=== PATIENT | male | born 1945 | race Caucasian/White ===

== ENCOUNTER 2019-11-20 05:28 | Inpatient (IN) ==
--- NOTE | 2019-11-15 08:52 | Anesthesiology Consultation ---
Date of Service November 15, 2019 Assessment & Plan (1) Encounter for pre-operative examination: PCP Clearance 10/02/19 = "Reviewed the documents from orthopedic surgeon and reviewed x-rays. Labs reviewed that mitra normal CBC and Cr. No cardiac symptoms. Pt is cleared for the surgery." COVID Status: As of 11/14 nurse assessment, patient denies travel to endemic area, known exposure/sick contacts, or symptoms of COVID19. Preoperative COVID19 testing completed on 11/14 at [facility] [place], results pending. Chart Review Chart Review: Acceptable Risk for Surgery and Patient NOT seen in Pre Admission Testing History Surgery Operation Date: 11/20/19 09:30 Proposed Procedures p Right Anterior Total Hip Arthroplasty - Sadi Butler DO Height/Weight Height: 5 ft 11.5 in Weight: 95.254 kg Allergies Allergy/AdvReac Type Severity Reaction Status Date / Time No Known Allergies Allergy Verified 11/15/19 07:33 Medications Home Medications Medication Instructions Recorded Confirmed Last Taken ascorbic acid (vitamin C) [Vitamin 1 g PO QAM 09/14/19 11/15/19 Unknown C] aspirin [Aspir-81] 81 mg PO QPM 09/14/19 11/15/19 Unknown atorvastatin 10 mg PO QPM 09/14/19 11/15/19 Unknown calcium carbonate-vitamin D3 2 tab PO BID 09/14/19 11/15/19 Unknown [Calcium 500 + D] coenzyme Q10 [CoQ-10] 100 mg PO QPM 09/14/19 11/15/19 Unknown cyanocobalamin (vitamin B-12) 1,000 mcg PO QAM 09/14/19 11/15/19 Unknown [Vitamin B-12] garlic 1,000 mg PO QAM 09/14/19 11/15/19 Unknown glipizide 5 mg PO QAM 09/14/19 11/15/19 Unknown ibuprofen [Motrin IB] 400 mg PO Q6H PRN 09/14/19 11/15/19 Unknown lisinopril 20 mg PO BID 09/14/19 11/15/19 Unknown metformin 2,000 mg PO QPM 09/14/19 11/15/19 Unknown multivitamin 1 tab PO BID 09/14/19 11/15/19 Unknown naproxen 375 mg PO BID 09/14/19 11/15/19 Unknown potassium gluconate 595 mg PO BID 11/15/19 11/15/19 Unknown Past Medical History Medical History Arthritis Cancer HX COLON CANCER 2007-CHEMO/RADIATION-RECTAL BIOPSY/NO SURGERY NEEDED Diabetes mellitus, type 2 Hyperlipidemia Hypertension Neuropathy RIGHT LEG Skin cancer BASAL CELL/SQUAMOUS CELL Past Family History Family History Brother Family history of diabetes mellitus Mother Family history of diabetes mellitus Past Surgical History Surgical History H/O hand surgery DEBRIDEMENT LEFT INDEX FINGER History of colonoscopy History of herniorrhaphy History of hydrocelectomy Social History Smoking Status: Never smoker Do You Dip or Chew Tobacco: No Hx Alcohol Use: Yes Alcohol type: beer alcohol intake frequency: holidays/special occasions only Hx Substance Use: No Testing Laboratory Results 09/20/19 WBC: 6.24 H/H: 12.5/37.8 PLATELETS: 215 SODIUM: 137 POTASSIUM: 4.4 CHLORIDE: 105 CO2: 27 BUN: 28 CREATININE: 1.02 GLUCOSE: 142 PT: 11.4 PTT: 28.2 INR: 1.1 A1C (10/09/19): 7.6% Electrocardiogram Date: 09/20/19 Findings: + SB @ (54bpm) 1st degree AV block. Left axis deviation. NSIVCD. NSTWA. Chest X-Ray Date: 09/20/19 Findings: + NAD Other Testing Echocardiogram Date: 06/06/19 EF: 55-60% LV is normal in size. Mild concentric LVH. LV systolic function is normal. Left atrium is moderately dilated. No hemodynamically significant valvular aortic stenosis. Trace to mild MR. Trace TR. Trace pulmonic valvular regurgitation. No pericardial effusion. Stress Test Date: 08/10/19 Type: nuclear Resting EF: 58% Electrocardiographically negative for regadenoson-induced ischemic changes, arrhythmias, or conduction disturbances. Normal myocardial perfusion imaging with no evidence of myocardial ischemia or scar. No LV regional wall motion abnormalities.
--- NOTE | 2019-11-18 08:33 | History & Physical Report ---
Date of Service November 20, 2019 Assessment & Plan (1) Degenerative joint disease of right hip: I have indicated the patient for right anterior total hip replacement. The risks, benefits and complications of surgery were explained to the patient which include but not limited to infection, acute blood loss, DVT/PE, injury to nerves, vessels, bone, soft tissue, arthrofibrosis, chronic pain, failure of the prosthesis, hip dislocation, leg length discrepancy, need for additional surgery, cardiac and pulmonary events and . The patient wished to proceed with surgery and informed consent was obtained at this time. We will plan for 81mg ASA BID post-operatively for DVT prophylaxis. Upon discharge the patient will be discharged home with home health services. Appropriate clearances by PCP were obtained. History of Present Illness Chief Complaint: Right hip pain/DJD/AVN Primary Care Provider: Kathy Rios The patient is a 74 year old male who presents with complaints of severe right hip pain and DJD/AVN. The patient has failed outpatient conservative treatments to this point which included NSAIDs, home exercise/walking program. The patient's pain and limited function have progressed to the point where they severely hinder their activities of daily living and they no longer tolerate exercise programs. They are requesting to proceed with total hip replacement surgery. Previously patient's surgery had to be delayed secondary to elevate HbA1C, most recent lab draw 6.8. Allergies Allergy/AdvReac Type Severity Reaction Status Date / Time No Known Allergies Allergy Verified 11/20/19 05:54 Home Medications Home Medications Medication Instructions Recorded Confirmed Type ascorbic acid (vitamin C) [Vitamin 1 g PO QAM 09/14/19 11/20/19 History C] aspirin [Aspir-81] 81 mg PO QPM 09/14/19 11/20/19 History atorvastatin 10 mg PO QPM 09/14/19 11/20/19 History calcium carbonate-vitamin D3 2 tab PO BID 09/14/19 11/20/19 History [Calcium 500 + D] coenzyme Q10 [CoQ-10] 100 mg PO QPM 09/14/19 11/20/19 History cyanocobalamin (vitamin B-12) 1,000 mcg PO QAM 09/14/19 11/20/19 History [Vitamin B-12] garlic 1,000 mg PO QAM 09/14/19 11/20/19 History glipizide 5 mg PO QAM 09/14/19 11/20/19 History ibuprofen [Motrin IB] 400 mg PO Q6H PRN 09/14/19 11/20/19 History lisinopril 20 mg PO BID 09/14/19 11/20/19 History metformin 2,000 mg PO QPM 09/14/19 11/20/19 History multivitamin 1 tab PO BID 09/14/19 11/20/19 History naproxen 375 mg PO BID 09/14/19 11/20/19 History potassium gluconate 595 mg PO BID 11/15/19 11/20/19 History loperamide [Imodium A-D] 2 mg PO QID PRN 11/20/19 11/20/19 History Past Med/Surg History Medical History Arthritis Cancer HX COLON CANCER 2006-CHEMO/RADIATION-RECTAL BIOPSY/NO SURGERY NEEDED Diabetes mellitus, type 2 Hyperlipidemia Hypertension Neuropathy RIGHT LEG Skin cancer BASAL CELL/SQUAMOUS CELL Surgical History H/O hand surgery DEBRIDEMENT LEFT INDEX FINGER History of colonoscopy History of herniorrhaphy History of hydrocelectomy Family History Brother Family history of diabetes mellitus Mother Family history of diabetes mellitus Social History Smoking Status: Never smoker Second Hand Exposure: Yes ( A CHILD); Do You Dip or Chew Tobacco: No; Tobacco Cessation Education Requested by Patient: No Hx Alcohol Use: Yes Alcohol type: beer Hx Substance Use: No Preferred Language: Maltese Communication Ability: Effective Literacy Teacher Required: No Beliefs That Will Affect Care: None Current Living Situation: Spouse Feels Safe at Home: Yes Safety Concerns: Feels Safe At This Time Review of Systems Review of Systems: All systems reviewed & are unremarkable except as noted in HPI & below Constitutional: as per Subjective / HPI Physical Exam Physical Exam: RLE NVSI +EHL/FHL/TA/GS SILT grossly, +2 DP pulse, compartments soft NT, limited painful ROM of the hip, antalgic gait. Constitutional: WD/WN, vitals as above Eyes: PERRL, conjunctivae normal, anicteric sclerae ENMT: external ear and nose normal, oropharynx normal Neck: trachea midline, no thyromegaly Respiratory: normal respiratory effort, lungs clear to auscultation Cardiovascular: RRR, no murmur, no edema Gastrointestinal (Abdomen): normal bowel sounds, soft, nontender, no hepatosplenomegaly Musculoskeletal: no cyanosis or clubbing, extremities motor strength 5/5 Skin: no rashes, warm and dry Neurologic: patellar DTR's 2+ bilat, sensation intact Psychiatric: A+Ox3, euthymic affect Lymphatic: no cervical or axillary lymphadenopathy Results & Data Results & Data ([place]) Diagnostic Findings Multiple views of the hip demonstrates severe DJD with complete loss of the joint space. AVN involving femoral head, +osteophytes, +sclerosis, +subchondral cysts.
[2019-11-20] MEDS ORDERED: CeleBREX 200 MG CAP PO SCH (06:00)
[2019-11-20] MEDS ORDERED: METOCLOPRAMIDE HCL 10 MG TABLET PO SCH (06:00)
[2019-11-20] MEDS ORDERED: TRANEXAMIC ACID 1,000 MG **IV Pre-op IV SCH (06:00)
[2019-11-20] MEDS ORDERED: FAMOTIDINE 20 MG TAB PO SCH (06:00)
[2019-11-20] MEDS ORDERED: dexAMETHasone 4 MG TAB PO SCH (06:00)
[2019-11-20] MEDS ORDERED: LR 500ML BOLUS, THEN 15ML/HR IV SCH (06:00)
[2019-11-20] MEDS ORDERED: TRANEXAMIC ACID 1,000 MG **IV Intra-op IV SCH (06:00)
[2019-11-20] MEDS ORDERED: ROPIVACAINE 0.5% HCL/PF 150 MG, BUPIVACAINE 0.5% MPF 30 ML, EPINEPHrine 30MG/30ML (OR U... INSTIL SCH (06:00)
[2019-11-20] MEDS ORDERED: CEFAZOLIN 2000MG 2,000 MG/15 ML SYR IV SCH (06:00)
[2019-11-20] MEDS ORDERED: ACETAMINOPHEN 500 MG TAB PO SCH (06:00)
[2019-11-20] MEDS ORDERED: GABAPENTIN 300 MG CAP PO SCH (06:00)
[2019-11-20] MEDS ORDERED: BUPIVACAINE 0.5 % 5 MG/1 ML PF 10ML VIAL ONE (06:36)
[2019-11-20] MEDS ORDERED: MIDAZOLAM HCL 1 MG/ML 2ML VIAL ONE (06:38)
[2019-11-20] MEDS ORDERED: LIDOCAINE HCL 2% 2 ML VIAL/AMP(20MG/ML) INFIL ONE (06:38)
[2019-11-20] MEDS ORDERED: fentaNYL citrate 100 MCG/2 ML VIAL ONE (06:38)
[2019-11-20] MEDS ORDERED: PROPOFOL IV EMULSION 10 MG/ML 20 ML VIAL IV ONE ×4 (06:38→09:22)
[2019-11-20] MEDS ORDERED: ORTHO JOINT ANESTHETIC ONE (06:45)
[2019-11-20] MEDS ORDERED: BACITRACIN INJ 50,000 UNIT VIAL ONE (06:45)
[2019-11-20] MEDS ORDERED: HYDROmorphone INJ 2 MG/ML SYR/VIAL IV PRN (06:46)
[2019-11-20] MEDS ORDERED: ePHEDrine sulfate 50 MG/ML AMP IV PRN (06:46)
[2019-11-20] MEDS ORDERED: ONDANSETRON INJ 2 MG/ML 2 ML VIAL IV PRN ×2 (06:46→11:18)
[2019-11-20] MEDS ORDERED: fentaNYL citrate 100 MCG/2 ML VIAL IV PRN (06:46)
[2019-11-20] MEDS ORDERED: ATROPINE SULFATE 0.1 MG/ML 10ML SYR IV PRN (06:46)
--- NOTE | 2019-11-20 06:49 | History & Physical Bridge Note ---
Date of Service November 20, 2019 History & Physical Bridge Note I have examined the patient, reviewed the History & Physical and in the interval since the performance of the History & Physical I have noted the following changes of clinical significance: no changes noted
[2019-11-20] MEDS ORDERED: KETAMINE HCL INJ 50 MG/ML 10 ML VIAL ONE (07:31)
--- NOTE | 2019-11-20 09:22 | Post Operative Brief Note ---
Immediate Post Op Note v1 Date of Surgery November 20, 2019 Pre & Post Diagnosis Operation Date: 11/20/19 07:00 Pre-Op Diagnosis: Primary Osteoarthritis Right Hip Post-Op Diagnosis: Primary Osteoarthritis Right Hip I identified the patient and participated in the time-out.: Yes Procedure Operation Date: 11/20/19 07:00 Actual Procedures p Right Anterior Total Hip Arthroplasty, Uncemented(Right) - Sadi Butler DO Surgeon Sadi Butler DO Knot Borer Brendan Schwartz Estimated Blood Loss 170 Findings Consistent with Post-Op Diagnosis Fluids 1400 cc LR Specimens femoral head Anesthesia Type Spinal MAC Complications none Disposition Disposition: Recovery Room Overlapping Procedure I was present for: the critical portions of procedure. I was immediately available: during the entire case. Back up surgeon: was not required during procedure.
--- NOTE | 2019-11-20 09:25 | Operative Report ---
Post Operative Report Pre & Post Diagnosis Operation Date: 11/20/19 07:00 Pre-Op Diagnosis: Primary Osteoarthritis Right Hip Post-Op Diagnosis: Primary Osteoarthritis Right Hip I identified the patient and participated in the time-out.: Yes Procedure Operation Date: 11/20/19 07:00 Actual Procedures p Right Anterior Total Hip Arthroplasty, Uncemented(Right) - Sadi Butler DO Surgeon Sadi Butler DO Crystal Grinder Brendan Schwartz Estimated Blood Loss 170 Findings Consistent with Post-Op Diagnosis Fluids 1400 cc LR Specimens femoral head Anesthesia Type Spinal MAC Disposition Disposition: Recovery Room Indications The patient is a 68-year-old male who presents with severe progressive right hip DJD who has failed outpatient conservative treatments. I indicated the patient for a anterior total hip replacement and the risks and benefits were explained in detail which include but not limited to infection, bleeding, blood clot, damage to surrounding bone, nerves, vessels, soft tissue, hip dislocation, failure of the prosthesis, leg length discrepancy, need for additional surgery and . The patient agreed to proceed with replacement of the hip and informed consent was obtained. Appropriate clearances were obtained. Description of Procedure COMPONENTS USED: [employer] hip system: Acetabulum size 58, femur size 6 high offset, femoral head 36+0, liner 5836, acetabular screw 25 mm x 1. DESCRIPTION OF PROCEDURE: Following satisfactory spinal anesthesia, the patient was placed supine on the OR table. The left leg was placed in the well leg gregory and the right leg in the traction device. The right leg was prepared with ChloraPrep and draped sterilely. A surgical timeout was performed, patient identified and site pablo verified. Appropriate antibiotics were given. A standard anterior approach in the interval between the sartorius and tensor muscles was performed. Dissection was carried down through subcutaneous tissues. Electrocautery was utilized for hemostasis. Circumflex femoral vessels were identified, tied and ligated. The anterior capsular fat pad was removed and the capsulotomy was performed revealing the arthritic femoral neck and head. A femoral neck cut was made with reciprocating saw and the bone fragments removed. The acetabular self-retraining retractor was placed. Aceta bular reaming was completed under fluoroscopic guidance, a 58 shell was impacted into an anatomic position and secured with a dome screw. Local anesthetic was placed and following irrigation, the polyethylene liner was placed. The femur was placed into position of external rotation, extension and adduction. Femoral canal was prepared up to the size 6 high offset. Trial reduction with a +0 neck length head showed good soft tissue tension, leg lengths restored, and good fit and fill of the proximal canal using fluoroscopic landmarks. The hip was dislocated. The trial component was removed. The final implant was placed. The hip was irrigated with sterile saline solution and reduced. A Betadine soak was performed. After 3 minutes, the hip was once more irrigated with copious sterile saline solution with bacitracin. Felipa-incisional soft tissue was injected utilizing [place] Orthomix which includes a combination of Ropivicaine 0.5% 150mg, Bupivicaine 0.5%/Epinephrine 1:200,000 30ml, Toradol 30mg, Dexamethasone 4mg, Ketamine 10mg, Clonidine 100mcg and NSS 30ml solution. The capsule was then closed with 1-0 Vicryl interrupted figure of eight sutures. The fascia was closed with a running suture of #1 Vicryl, the subcutaneous tissues with 2-0 Vicryl and the skin with a running subcuticular stitch of 3-0 V-Loc. Dermabond prineo and a dry dressing were applied. The patient tolerated the procedure well and was transported to PACU in stable condition. Due to the complex nature of the procedure, the entire surgery was performed with the operational assistance of Brendan Schwartz PA-C. The patent legal assistant, under direct supervision, was involved in the actual performance of all aspects of the surgical procedure including patient positioning, hemostasis, tissue retraction, instrument management and wound closure. I attest to the content of the Intraoperative Record and any orders documented therein. Any exceptions are noted below.
--- NOTE | 2019-11-20 09:37 | Fluoroscopy Report ---
FL hip RT 1V CLINICAL HISTORY: RT ANTERIOR TOTAL COMPARISON STUDY: None FLUOROSCOPY TIME: 57 seconds. NUMBER OF FLUOROSCOPIC IMAGES: 2 FINDINGS: 2 intraoperative fluoroscopic spot images reveal postsurgical changes of a total right hip arthroplasty. IMPRESSION: Intraoperative fluoroscopic spot images demonstrating postsurgical changes of a total ri ght hip arthroplasty ACT 112: Negative or not required by law. Electronically signed by: Alen Connelly M.D. 11/20/2019 9:36 AM
--- NOTE | 2019-11-20 10:02 | XRay Report ---
SINGLE VIEW PELVIS; SINGLE VIEW RIGHT HIP CLINICAL HISTORY: Postoperative examination. FINDINGS: An AP portable view of the hips and pelvis with a crosstable lateral portable view of the r ight hip are obtained. A bipolar right hip arthroplasty is in near-anatomic alignment. A single corti gino lag screw transfixes the acetabular cup. No acute fracture is identified. There are expected post operative changes overlying the right right hip including subcutaneous gas and soft tissue swelling. Advanced arthritic change is noted in the left hip. IMPRESSION: Expected postoperative findings status post right hip arthroplasty. No acute fracture is seen. ACT 112: Negative or not required by law. Electronically signed by: Chris Munoz M.D. 11/20/2019 10:00 AM
--- NOTE | 2019-11-20 10:56 | Anesthesiology Progress Note ---
Date of Service November 20, 2019 Anesthesia Post Procedure Vital Signs Vital Signs: Temp Pulse Pulse Resp BP BP Pulse Ox 11/20/19 10:40 50 L 19 145/71 H 94 11/20/19 10:30 36.3 C L 45 L 20 127/60 96 11/20/19 10:20 43 L 16 114/59 L 96 11/20/19 10:10 44 L 18 113/56 L 95 11/20/19 10:00 45 L 13 118/53 L 96 11/20/19 09:55 49 L 20 110/54 L 98 11/20/19 09:49 36.2 C L 47 L 12 116/61 98 11/20/19 06:01 37.1 C 69 20 165/76 H 96 Transfer of Care Handoff Completed per policy Notes Mental Status: alert / awake / arousable and participated in evaluation Patient Amnestic to Procedure: Yes Nausea / Vomiting: adequately controlled Pain: adequately controlled Airway Patency, RR, SpO2: stable & adequate BP & HR: stable & adequate Hydration State: stable & adequate Anesthetic Complications: no major complications apparent and Pt Satisfied with anesthetic care
[2019-11-20] MEDS ORDERED: HYDROmorphone INJ 0.5 MG/0.5 ML SYR IV PRN (11:18)
[2019-11-20] MEDS ORDERED: METOCLOPRAMIDE HCL INJ 5 MG/ML 2 ML VIAL IV PRN (11:18)
[2019-11-20] MEDS ORDERED: bisacodyL 10 MG SUPP PR PRN (11:18)
[2019-11-20] MEDS ORDERED: NALOXONE HCL 0.4 MG/1 ML VIAL/CARP IV PRN (11:18)
[2019-11-20] MEDS ORDERED: OXYCODONE HCL IR 5 MG TAB (IMMEDIATE RELEASE) PO PRN (11:18)
[2019-11-20] MEDS ORDERED: MAGNESIUM HYDROXIDE SUSP 30 ML UDC PO PRN (11:18)
[2019-11-20] MEDS ORDERED: PHARMACY GLYCEMIC MGMT CONSULT PRN (11:35)
[2019-11-20] MEDS ORDERED: GLUCOSE 10 TABS/TUBE PO PRN (11:45)
[2019-11-20] MEDS ORDERED: LANTUS PER UNIT CHARGE SQ ONE ×2 (11:45→21:00)
[2019-11-20] MEDS ORDERED: GLUCOSE 40% GEL 15 GM TUBE PO PRN (11:45)
[2019-11-20] MEDS ORDERED: GLUCAGON FOR INJ 1 MG VIAL IM PRN (11:45)
[2019-11-20] MEDS ORDERED: DEXTROSE 50% 50 ML SYRINGE IV PRN (11:45)
[2019-11-20] MEDS ORDERED: CARBOHYDRATES FOR HYPOGLYCEMIA PO PRN (11:45)
--- NOTE | 2019-11-20 11:54 | Orthopedic Progress Note ---
Date of Service November 20, 2019 Assessment & Plan (1) Degenerative joint disease of right hip: s/p R anterior YENNY -ancef x 24 -DVT ppx: SCDs, TEDs, 81mg ASA BID -WBAT RLE -PT/OT -PO XR demonstrates well aligned well fixed prothesis without fracture/dislocation -am labs -DC planning Admission and Anticipated Discharge Date Admission Date: November 20, 2019 Subjective Post Operative Progress Note Patient seen in PACU, comfortable, denies complaints, pain well controlled, no acute issues. Still feeling effects of spinal anesthesia. Review of Systems Review of Systems: All systems reviewed & are unremarkable except as noted in HPI & below Physical Exam Physical Exam: RLE PE limited secondary to spinal anesthesia, +2 DP pulse, compartments soft NT, dressing CDI Constitutional: WD/WN, vitals as above Results & Data ([facility]) Vital Signs (Past 12 Hours) Vital Signs Temp Pulse Pulse Resp BP BP Pulse Ox 11/20/19 11:35 49 L 18 155/82 H 96 11/20/19 10:40 50 L 19 145/71 H 94 11/20/19 10:30 36.3 C L 45 L 20 127/60 96 11/20/19 10:20 43 L 16 114/59 L 96 11/20/19 10:10 44 L 18 113/56 L 95 11/20/19 10:00 45 L 13 118/53 L 96 11/20/19 09:55 49 L 20 110/54 L 98 11/20/19 09:49 36.2 C L 47 L 12 116/61 98 11/20/19 06:01 37.1 C 69 20 165/76 H 96
[2019-11-20] MEDS ORDERED: SODIUM CHLORIDE 0.9% 1000ML 1,000 ML IV SCH (12:00)
[2019-11-20] MEDS: ACETAMINOPHEN 500 MG TAB PO SCH ×2 (12:48→21:44)
[2019-11-20] MEDS: KETOROLAC TROMETHAMINE 15 MG/ML VIAL IV SCH ×3 (12:49→23:44)
[2019-11-20] MEDS: INSULIN ASPART 100 UNITS/ML 3 ML PEN SC SCH ×3 (12:50→21:41)
--- NOTE | 2019-11-20 13:24 | Pharmacy Report ---
Pharmacy Glycemic Short Note 2 - Date of Service November 20, 2019 - Glycemic Short BSG Results (Last 24 hours): 11/20/19 11/20/19 11/20/19 05:58 09:53 12:07 POC Glucose 162 H 222 H 255 H OUTPATIENT ANTIDIABETIC REGIMEN: * Glipizide 5mg PO qAM * Metformin 2000mg PO qPM * HbA1c: 7.6% (10/09/19) ASSESSMENT: * Mr Loya is a 74yo diabetic male, POD 0 s/p R total hip this am. * Patient rec'd PO DXM 8mg preop this morning, in addition to DXM in ortho mix. This is expected to contribute significantly to steroid-induced hyperglycemia. * Oral agents held on admission and pt started on basal/bolus insulin regimen in an attempt to provide adequate glycemic control post-op, to promote wound healing and discourage infection. PLAN FOR INPATIENT GLYCEMIC CONTROL: * Hold outpatient oral diabetes medications * Basal insulin * Lantus 30 units SQ on admission, then * Lantus tonight based on BSG (see MAR for details) * Bolus insulin * NovoLog per scale ACHS or Q6hrs while NPO * Goal Range: Low 110 mg/dL - High 140 mg/dL * Correction Factor: 20 mg/dL/unit * Nutritional / Prandial insulin per carb ratio of 1 unit per 7 grams CHO consumed PLAN FOR DISCHARGE: * Patient's recent A1c (7.6%) indicates adequate glycemic control as an outpt. * Expect that pt may resume home regimen on discharge, as long as he does not report having episodes of hypoglycemia.
[2019-11-20] MEDS: CEFAZOLIN 2000MG 2,000 MG/15 ML SYR IV SCH ×2 (15:26→23:45)
[2019-11-20] MEDS ORDERED: ATORVASTATIN 10 MG TAB PO SCH (21:00)
[2019-11-20] MEDS ORDERED: SENNA 8.6 MG TAB PO SCH (21:00)
[2019-11-20] MEDS ORDERED: NON-FORMULARY MEDICATION (Potassium Gluconate 595 MG) PO SCH (21:00)
[2019-11-20] MEDS: DOCUSATE SODIUM 100 MG CAP PO SCH (21:43)
[2019-11-20] MEDS: lisinopriL 20 MG TAB PO SCH (21:44)
[2019-11-21 03:17] VITALS: TEMP 97.5
[2019-11-21] MEDS: ACETAMINOPHEN 500 MG TAB PO SCH (05:29)
[2019-11-21] MEDS: KETOROLAC TROMETHAMINE 15 MG/ML VIAL IV SCH (05:29)
[2019-11-21 06:44] LABS: Hematocrit (blood only) 30.5 % (42-52); Hemoglobin 10.2 g/dL (14.0-18.0); Immature Granulocytes # (auto) 0.02 K/uL (0.00-0.02); Immature Granulocytes % (auto) 0.2 %; Lymphocytes # (auto) 1.07 K/uL (1.2-3.4); Lymphocytes % (auto) 9.4 %; Mean Corpuscular Hemoglobin 30.6 pg (25-34); Mean Corpuscular Hgb Conc 33.4 g/dL (32-36); Mean Corpuscular Volume 91.6 fL (80-100); Mean Platelet Volume 10.4 fL (7.4-10.4); Monocytes # (auto) 0.85 K/uL (0.11-0.59); Monocytes % (auto) 7.4 %; Platelet Count 209 K/uL (130-400); RDW Coefficient of Variation 13.3 % (11.5-14.5); RDW Standard Deviation 44.9 fL (36.4-46.3); Red Blood Count 3.33 M/uL (4.7-6.1); White Blood Count 11.44 K/uL (4.8-10.8)
[2019-11-21 07:08] LABS: BUN Creatinine Ratio 27.3 (10-20); Calcium 8.3 mg/dl (8.5-10.1); Creatinine Clr Calc Pharmacy 58.5 ml/min; Est GFR (African American) 69.1; Est GFR (Non-African American) 59.6; Potassium 4.3 mmol/L (3.5-5.1)
[2019-11-21 07:20] VITALS: PULSE 56; O2SAT 96
--- NOTE | 2019-11-21 07:20 | Orthopedic Progress Note ---
Date of Service November 21, 2019 Assessment & Plan (1) Degenerative joint disease of right hip: s/p R anterior YENNY POD#1 -ancef x 24 -DVT ppx: SCDs, TEDs, 81mg ASA BID -WBAT RLE -PT/OT -PO XR demonstrates well aligned well fixed prothesis without fracture/dislocation -am labs - as above, hgb 10.2 -DC planning - home with HH Admission and Anticipated Discharge Date Admission Date: November 20, 2019 Subjective Post Operative Progress Note Patient seen sitting up in bed, comfortable, denies complaints, pain well controlled, no acute issues. Denies F/C/N/V/SOB/CP. Review of Systems Review of Systems: All systems reviewed & are unremarkable except as noted in HPI & below Constitutional: as per Subjective / HPI Physical Exam Physical Exam: RLE NVSI +EHL/FHL/TA/GS SILT grossly, +2 DP pulse, compartments soft NT, dressing cdi. Constitutional: WD/WN, vitals as above Results & Data ([facility]) Vital Signs (Past 12 Hours) Vital Signs Temp Pulse Resp BP Pulse Ox 11/21/19 03:16 36.4 C L 53 L 16 145/60 H 95 11/20/19 23:02 36.6 C 56 L 16 121/67 95 Laboratory Results 11/21/19 11/21/19 11/20/19 Range/Units 05:56 05:56 20:47 WBC 11.44 H (4.8-10.8) K/uL RBC 3.33 L (4.7-6.1) M/uL Hgb 10.2 L (14.0-18.0) g/dL Hct 30.5 L (42-52) % MCV 91.6 (80-100) fL MCH 30.6 (25-34) pg MCHC 33.4 (32-36) g/dL RDW Std Deviation 44.9 (36.4-46.3) fL RDW Coeff of [place] 13.3 (11.5-14.5) % Plt Count 209 (130-400) K/uL MPV 10.4 (7.4-10.4) fL Immature Gran % (Auto) 0.2 % Neut % (Auto) 83.0 % Lymph % (Auto) 9.4 % [place] % (Auto) 7.4 % Eos % (Auto) 0.0 % Baso % (Auto) 0.0 % Neut # (Auto) 9.50 H (1.4-6.5) K/uL Lymph # (Auto) 1.07 L (1.2-3.4) K/uL [place] # (Auto) 0.85 H (0.11-0.59) K/uL Eos # (Auto) 0.00 (0-0.5) K/uL Baso # (Auto) 0.00 (0-0.2) K/uL Immature Gran # (Auto) 0.02 (0.00-0.02) K/uL Sodium 141 (136-145) mmol/L Potassium 4.3 (3.5-5.1) mmol/L Chloride 109 H (98-107) mmol/L Carbon Dioxide 24 (21-32) mmol/L Anion Gap 8.0 (3-11) BUN 32 H (7-18) mg/dl Creatinine 1.18 (0.6-1.4) mg/dl Est Cr Clr Drug Dosing 58.5 ml/min Est GFR ( Amer) 69.1 Est GFR (Non-Af Amer) 59.6 BUN/Creatinine Ratio 27.3 H (10-20) Glucose 164 H (70-99) mg/dl POC Glucose 242 H (70-99) mg/dl Calcium 8.3 L (8.5-10.1) mg/dl 11/20/19 11/20/19 11/20/19 Range/Units 17:22 12:07 09:53 WBC (4.8-10.8) K/uL RBC (4.7-6.1) M/uL Hgb (14.0-18.0) g/dL Hct (42-52) % MCV (80-100) fL MCH (25-34) pg MCHC (32-36) g/dL RDW Std Deviation (36.4-46.3) fL RDW Coeff of [place] (11.5-14.5) % Plt Count (130-400) K/uL MPV (7.4-10.4) fL Immature Gran % (Auto) % Neut % (Auto) % Lymph % (Auto) % [place] % (Auto) % Eos % (Auto) % Baso % (Auto) % Neut # (Auto) (1.4-6.5) K/uL Lymph # (Auto) (1.2-3.4) K/uL [place] # (Auto) (0.11-0.59) K/uL Eos # (Auto) (0-0.5) K/uL Baso # (Auto) (0-0.2) K/uL Immature Gran # (Auto) (0.00-0.02) K/uL Sodium (136-145) mmol/L Potassium (3.5-5.1) mmol/L Chloride (98-107) mmol/L Carbon Dioxide (21-32) mmol/L Anion Gap (3-11) BUN (7-18) mg/dl Creatinine (0.6-1.4) mg/dl Est Cr Clr Drug Dosing ml/min Est GFR ( Amer) Est GFR (Non-Af Amer) BUN/Creatinine Ratio (10-20) Glucose (70-99) mg/dl POC Glucose 225 H 255 H 222 H (70-99) mg/dl Calcium (8.5-10.1) mg/dl
[2019-11-21] MEDS ORDERED: LANTUS PER UNIT CHARGE SQ ONE (09:00)
[2019-11-21] MEDS ORDERED: ASPIRIN 81 MG ECTAB PO SCH (09:00)
[2019-11-21] MEDS ORDERED: MULTIVITAMIN TAB PO SCH (09:00)
[2019-11-21] MEDS: lisinopriL 20 MG TAB PO SCH (09:08)
[2019-11-21] MEDS: DOCUSATE SODIUM 100 MG CAP PO SCH (09:08)
[2019-11-21] MEDS: INSULIN ASPART 100 UNITS/ML 3 ML PEN SC SCH ×2 (09:10→12:46)
--- NOTE | 2019-11-21 10:00 | Pharmacy Report ---
Pharmacy Glycemic Short Note 2 - Date of Service November 21, 2019 - Glycemic Short BSG Results (Last 24 hours): 11/20/19 11/20/19 11/20/19 09:53 12:07 17:22 Glucose POC Glucose 222 H 255 H 225 H 11/20/19 11/21/19 11/21/19 20:47 05:56 08:21 Glucose 164 H POC Glucose 242 H 167 H OUTPATIENT ANTIDIABETIC REGIMEN: * Glipizide 5mg PO qAM * Metformin 2000mg PO qPM * HbA1c: 7.6% (10/09/19) ASSESSMENT: 11/21/19: * Mr Loya received 79 units of insulin yesterday: * 45 units of basal insulin * 34 units of prandial/correctional insulin * BSGs ranged from 162-255 mg/dL during the past 24 hours. * Another dose of Lantus was provided this morning to cover any residual effects of dexamethasone rec'd pre-op. Do not anticipate that pt will require further Lantus, but will add a scale this evening if BSGs have not improved. 11/20/19 * Mr Loya is a 74yo diabetic male, POD 0 s/p R total hip this am. * Patient rec'd PO DXM 8mg preop this morning, in addition to DXM in ortho mix. This is expected to contribute significantly to steroid-induced hyperglycemia. * Oral agents held on admission and pt started on basal/bolus insulin regimen in an attempt to provide adequate glycemic control post-op, to promote wound healing and discourage infection. PLAN FOR INPATIENT GLYCEMIC CONTROL: * Hold outpatient oral diabetes medications * Basal insulin * Lantus 20 units SQ this morning * Bolus insulin * NovoLog per scale ACHS or Q6hrs while NPO * Goal Range: Low 110 mg/dL - High 140 mg/dL * Correction Factor: 20 mg/dL/unit * Nutritional / Prandial insulin per carb ratio of 1 unit per 7 grams CHO consumed PLAN FOR DISCHARGE: * Patient's recent A1c (7.6%) indicates adequate glycemic control as an outpt. * Expect that pt may resume home regimen on discharge, as long as he does not report having episodes of hypoglycemia.
[2019-11-21 11:11] VITALS: BP 145/60
--- NOTE | 2019-11-21 17:14 | Discharge Summary ---
Date of Service November 21, 2019 Admission HPI Per Admitting Provider The patient is a 74 year old male who presents with complaints of severe right hip pain and DJD/AVN. The patient has failed outpatient conservative treatments to this point which included NSAIDs, home exercise/walking program. The patient's pain and limited function have progressed to the point where they severely hinder their activities of daily living and they no longer tolerate exercise programs. They are requesting to proceed with total hip replacement surgery. Previously patient's surgery had to be delayed secondary to elevate HbA1C, most recent lab draw 6.8. Principal Diagnosis Right anterior total hip replacement -Right hip DJD/AVN Discharge Exam RLE NVSI +EHL/FHL/TA/GS SILT grossly, +2 DP pulse, compartments soft NT, dressing cdi. Constitutional WD/WN, vitals as above Discharge Data Allergies Allergy/AdvReac Type Severity Reaction Status Date / Time No Known Allergies Allergy Verified 11/20/19 05:54 Consultations 11/21/19 08:00 Consult Case Management - Discharge Planning Routine Procedures Performed Operation Date: 11/20/19 07:00 Actual Procedures p Right Anterior Total Hip Arthroplasty, Uncemented(Right) - Sadi Butler DO Ordered Studies 11/20/19 07:00 FL fluoroscopy <1hr Routine FL hip RT 1V Routine Hospital Course (1) Degenerative joint disease of right hip: The patient is a 74 -year-old male who presents with long standing history of severe right hip DJD and failed outpatient conservative treatments. The patient's symptoms have progressed to the point where it has been difficult to perform even normal activities of daily living. I indicated the patient for a right anterior total hip arthroplasty, the risks, benefits and complications of the procedure include but not limited to infection, bleeding, damage to bone, nerves, vessels, surrounding soft tissue, may develop blood clots, loss of function, leg length discrepancy, dislocation, failure of the components, loosening of the components, the need for additional surgery and . The patient wished to proceed with surgery at this time and informed consent was obtained. Hospital Course: On 11/20/19 the patient was taken to the operating room, adequate anesthesia administered and underwent a right anterior total hip arthroplasty. The patient tolerated the procedure well and was taken to the PACU in stable condition. Post-operatively the patient was started on a DVT ppx medication and given appropriate IV antibiotics. Consults were placed to physical therapy, occupational therapy and case management. On POD#1, the patient did well overnight and their pain was well controlled. Labs were drawn and the Hgb was 10.2. The patient progressed well with PT. Dressings were changed at this time and the incision was clean, dry and intact. The patients hospital stay was relatively uneventful and they were deemed stable by the orthopedic team and consultants to be discharged home with HH on 11/21/19. Discharge Instructions: Upon discharge the patient may weight bear as tolerates through their operative extremity. They were instructed to keep the incision clean and dry at all times. The patient may shower but should not submerge the incision, avoid bathing, pools and hot tubes. The patient was given a script for pain medication and should take as instructed. The patient was given a script for DVT ppx 81mg ASA BID and should take as directed. The patient was instructed to not drive or travel for long distances until cleared to do so. If the patient develops any symptoms of fevers, chills, nausea, vomiting, increased redness, swelling, pain or drainage from the surgical site, they should notify the office and/or proceed to the nearest emergency room. The patient should follow up in 10-14 days after surgery for their routine post-operative follow-up appointment and should call the office to confirm the date and time. s/p R anterior YENNY POD#1 -ancef x 24 -DVT ppx: SCDs, TEDs, 81mg ASA BID -WBAT RLE -PT/OT -PO XR demonstrates well aligned well fixed prothesis without fracture/dislocation -am labs - as above, hgb 10.2 -DC planning - home with Total Time Total Time Spent Total Time Spent (In Minutes): 30 Discharge Plan Discharge Items Patient Disposition: Home - Home Health Services Reason For Visit: Primary Osteoarthritis Right Hip Discharge Diagnosis: Right anterior total hip replacement -Right hip DJD/AVN Condition on Discharge: Good Activity: Per Instructions section Lifting: Wait until after follow-up appointment Bathing: Keep incision dry Bathing Comment: No bathing, pools or hot tubs. Sexual Activity: Wait until after follow-up appointment Exercise/Sports: Wait until after follow-up appointment Driving/Machine Use: No driving. Weightbearing: Full weightbearing Non-emergency contact: Primary Care Provider and Surgeon Call non-emergency contact if: you have any medication questions, your symptoms worsen, your pain is not controlled, your pain is worsening, your pain is unusual for you, your pain is concerning for you, you have a fever, your temperature is above 101, your wound has increased redness, your wound has increased drainage and your wound pain has increased Follow-up/Referrals: Kathy Rios M.D. [Primary Care Provider] - Diet: Regular Addtl Attending Provider Instructions: ACTIVITY RECOMMENDATIONS: SELF CARE INSTRUCTIONS AFTER TOTAL HIP REPLACEMENT : Direct Anterior Approach Until the incision and soft tissues around your hip have healed, there is a possibility that the hip prosthesis could dislocate. A. Hip flexion ( Up & Down out of chair or steps ) may be difficult. This is normal. B. Numbness in front of the thigh is also normal for a few weeks. C. Use hand rails when walking on stairs. D. Wear low heeled shoes with non-slip soles. E. Be sure that your floors are free of things that could trip you - throw rugs, electrical cords, small objects. Avoid wet and waxed floors, especially with crutches and canes. F. Try to walk several times a day with rest periods between. G. Continue with all the exercises taught to you in the hospital. Again, make walking a part of your daily routine. SPECIAL CARE INSTRUCTIONS: VERY IMPORTANT TO READ AND REVIEW A. You may still be at risk for phlebitis and blood clots. 1. Wear surgical stockings (MELANY hose) for 2 weeks after surgery to improve circulation and reduce swelling. 2. Take Aspirin 81mg twice daily for 4 weeks or as directed by your doctor. This is your blood thinner. 3. High risk patients may be prescribed a stronger blood thinner if necessary. 4. If you are on Coumadin normally, your family doctor/plant technician should monitor your blood work. Expect a phone call the day of or the day after bloodwork is drawn to adjust your dosage. B. You must take antibiotics before having dental work, bladder, bowel and oth er surgery. Your doctor will provide you with a permanent card to carry describing precautions. C. Call [facility] if you have a fever, redness or swelling around the incision, cloudy drainage from incision, or sudden increase in pain in your hip, not relieved by your regular pain medication. D. Please call the office at if you have any concerns or questions about your operation or recovery. * YOU MAY SHOWER, NO TUB BATHS UNTIL CLEARED BY YOUR DOCTOR. - Keep an extra close eye on the top portion of your incision. Be sure to keep clean & dry. * WEAR MELANY HOSE 20 HOURS PER DAY FOR 2 WEEKS. * YOU MAY PROGRESS FROM A WALKER, TO A CANE, TO INDEPENDENT AT YOUR OWN PACE. * MOST PATIENTS WILL HAVE HOME NURSING FOR THERAPY. IF YOU DECIDE TO DO OUTPATIENT PHYSICAL THERAPY, PLEASE SCHEDULE THIS 3 TIMES PER WEEK. * DERMABOND Prineo- This is a mesh tape dressing that is covered with glue. It should remain in place until the incision is properly healed, usually 10-14 days. This dressing is designed to naturally slough off. You may trim the excess mesh tape as it peels off. Incision may be briefly wet in a shower. Dry immediately by blotting with a clean, dry towel. Do not bath or swim until instructed by your doctor. Do not scratch, rub, or pick at the dressing. Do not apply any topical ointments or lotions until dressing is completely removed and/or instructed by your doctor. There may be a small piece of suture material at one end of your incision. Do not pull or trim this. If it is bothersome or catching on clothing, you may cover it with a band-aid. FOLLOW UP VISIT: If appointment is not already scheduled: Please call [facility] to make a follow-up appointment for 2 weeks after your surgery at . Pending Studies at Discharge: No Stand-Alone Forms: [facility], Opioid Pain Management, Smoking Cessation Medications and DC Order Prescriptions: New celecoxib [Celebrex] 200 mg Capsule 200 mg PO BID PRN (Reason: pain/inflammation) Qty: 28 RF: 0 aspirin 81 mg Tablet,Delayed Release (Dr/Ec) 81 mg PO BID Qty: 56 RF: 0 acetaminophen 500 mg Tablet 1,000 mg PO Q8 PRN (Reason: pain/fevers) Qty: 90 RF: 0 oxycodone 5 mg Tablet 5 mg PO Q6H MDD 4 PRN (Reason: pain) Qty: 30 RF: 0 sennosides [Senokot] 8.6 mg Tablet 17.2 mg PO HS PRN (Reason: constipation) Qty: 28 RF: 0 Continued metformin 500 mg Tablet 2,000 mg PO QPM RF: 0 atorvastatin 20 mg Tablet 10 mg PO QPM RF: 0 lisinopril 20 mg Tablet 20 mg PO BID RF: 0 glipizide 5 mg Tablet 5 mg PO QAM RF: 0 multivitamin Tablet 1 tab PO BID RF: 0 ascorbic acid (vitamin C) [Vitamin C] 1,000 mg Tablet 1 g PO QAM RF: 0 cyanocobalamin (vitamin B-12) [Vitamin B-12] 1,000 mcg Tablet 1,000 mcg PO QAM RF: 0 garlic 1,000 mg Capsule 1,000 mg PO QAM RF: 0 coenzyme Q10 [CoQ-10] 100 mg Capsule 100 mg PO QPM RF: 0 calcium carbonate-vitamin D3 [Calcium 500 + D] 500 mg(1,250mg) -200 unit Tablet 2 tab PO BID RF: 0 potassium gluconate 595 mg (99 mg) Tablet 595 mg PO BID RF: 0 loperamide [Imodium A-D] 2 mg Tablet 2 mg PO QID PRN (Reason: Diarrhea) RF: 0 Discontinued naproxen 375 mg Tablet 375 mg PO BID RF: 0 ibuprofen [Motrin IB] 200 mg Capsule 400 mg PO Q6H PRN (Reason: Pain) RF: 0 aspirin [Aspir-81] 81 mg Tablet,Delayed Release (Dr/Ec) 81 mg PO QPM RF: 0 Discharge Orders: Discharge Order (Routine); Ordered 11/21/19 Ordered By: Sadi Seymour/Other Patient Handouts: Total Hip Replacement, Understanding Hip Replacement Admission Data Admit Date/Time: 11/20/19 09:48 Attending Provider: Sadi Butler Admit Provider: Sadi Butler Primary Care Provider: Kathy Rios Other Providers: [facility],Home Health Other Interventions: Discharge Summary Assessment (RN) Last Done: 11/21/19 11:22 DC Date/Time DO NOT enter until pt leaves facility: 11/21/19 13:21
[2019-11-21] MEDS ORDERED: CeleBREX 200 MG CAP PO SCH (21:00)
== END 2019-11-21 13:21 | disposition home health service (06) | DRG 470 ==
LOC: ASU 05:28 → 3E 09:48

== ENCOUNTER 2020-10-22 08:39 | Inpatient (IN) ==
--- NOTE | 2020-10-08 15:13 | PAT Medication Instructions ---
Medication Instructions Date of Service October 08, 2020 Home Medications Medication Instructions Recorded acetaminophen 1,000 mg PO Q8 PRN #90 tab 11/20/19 celecoxib [Celebrex] 200 mg PO BID PRN #28 cap 11/20/19 oxycodone 5 mg PO Q6H PRN #30 tab MDD 4 11/20/19 ascorbic acid (vitamin C) [Vitamin C] 1 g PO QAM atorvastatin 10 mg PO QPM calcium carbonate-vitamin D3 [Calcium 500 + D] 2 tab PO BID coenzyme Q10 [CoQ-10] 100 mg PO QPM cyanocobalamin (vitamin B-12) [Vitamin B-12] 1,000 mcg PO QAM garlic 1,000 mg PO QAM glipizide 5 mg PO UD lisinopril 20 mg PO BID multivitamin 1 tab PO BID potassium gluconate 595 mg PO BID acetaminophen 1,000 mg PO Q8 PRN celecoxib [Celebrex] 200 mg PO BID PRN loperamide [Imodium A-D] 2 mg PO QID PRN oxycodone 5 mg PO Q6H PRN [place] Tart 1 tab PO QAM Focus Factor 1 tab PO QAM aspirin 81 mg PO QAM duloxetine 20 mg PO QAM metformin 1,500 mg PO PM omeprazole 20 mg PO BID ASK your surgeon for instructions celecoxib [Celebrex] 200 mg PO BID PRN STOP taking 2 weeks before surgery If surgery is within 2 weeks, stop taking as soon as possible. coenzyme Q10 [CoQ-10] 100 mg PO QPM garlic 1,000 mg PO QAM [place]ador Tart 1 tab PO QAM Focus Factor 1 tab PO QAM DO NOT take the morning of surgery ascorbic acid (vitamin C) [Vitamin C] 1 g PO QAM calcium carbonate-vitamin D3 [Calcium 500 + D] 2 tab PO BID cyanocobalamin (vitamin B-12) [Vitamin B-12] 1,000 mcg PO QAM glipizide 5 mg PO UD lisinopril 20 mg PO BID multivitamin 1 tab PO BID potassium gluconate 595 mg PO BID loperamide [Imodium A-D] 2 mg PO QID PRN Take morning of surgery With a small sip of water, OTHERWISE NOTHING TO EAT OR DRINK AFTER MIDNIGHT: acetaminophen 1,000 mg PO Q8 PRN (if needed, may be taken up to four hours before surgery) oxycodone 5 mg PO Q6H PRN (if needed, may be taken up to four hours before surgery) aspirin 81 mg PO QAM (unless otherwise instructed by your surgeon) duloxetine 20 mg PO QAM omeprazole 20 mg PO BID Take evening before surgery ascorbic acid (vitamin C) [Vitamin C] 1 g PO QAM atorvastatin 10 mg PO QPM calcium carbonate-vitamin D3 [Calcium 500 + D] 2 tab PO BID glipizide 5 mg PO UD lisinopril 20 mg PO BID multivitamin 1 tab PO BID potassium gluconate 595 mg PO BID acetaminophen 1,000 mg PO Q8 PRN (if needed) loperamide [Imodium A-D] 2 mg PO QID PRN (if needed) oxycodone 5 mg PO Q6H PRN (if needed) metformin 1,500 mg PO PM omeprazole 20 mg PO BID Other Notes If you have any questions please call us at [phone] or [phone] or [phone] or [phone]
--- NOTE | 2020-10-10 10:50 | Anesthesiology Consultation ---
Date of Service October 10, 2020 Assessment & Plan (1) Encounter for pre-operative examination: COVID Status: As of 10/10 assessment, patient denies travel to endemic area, known exposure/sick contacts, or symptoms of COVID19. Patient advised to adhere to social distancing guidelines, wear a mask in public and avoid large crowds or unnecessary travel in the 2 weeks leading up to surgery. Preoperative COVID19 testing to be completed prior to surgery per surgeon's arrangements. Pat ient encouraged to be extra cautious/conscientious with COVID precautions between COVID testing and surgery. Pt brought with him to [facility] an unconfirmed EKG showing a bifascicular block from June 2020, done prior to an EGD. This was new compared to previous EKGs. He did have normal echo/stress early 2019. EKG repeated in [facility]. Bifascicular block no longer present, but inverted T waves in lateral leads are worsened from 2019, consider ischemia. Case discussed with Dr. Overton. Given his good functional status and normal stress echo in 2019, will send EKG to PCP for their review and for them to pursue any further testing at their discretion. Chart Review Chart Review: Acceptable Risk for Surgery (pending response from PCP) and Patient seen in Pre Admission Testing Teaching & Discussion Instructed NPO after midnight before surgery, except medications with 15 cc of water. Medication instructions provided according to the [facility] guidelines. History Surgery Operation Date: 10/22/20 10:45 Proposed Procedures p Right Anterior Total Revision Arthroplasty Femur Head and Liner Procedure - Sadi Butler DO Height/Weight Height: 6 ft Weight: 91.9 kg Allergies Allergy/AdvReac Type Severity Reaction Status Date / Time No Known Allergies Allergy Verified 10/04/20 08:01 Medications Home Medications Medication Instructions Recorded Confirmed Last Taken ascorbic acid (vitamin C) [Vitamin 1 g PO QAM 09/14/19 10/04/20 1 Week Ago C] ~11/13/19 atorvastatin 10 mg PO QPM 09/14/19 10/04/20 11/17/19 calcium carbonate-vitamin D3 2 tab PO BID 09/14/19 10/04/20 11/15/19 [Calcium 500 + D] coenzyme Q10 [CoQ-10] 100 mg PO QPM 09/14/19 10/04/20 1 Month Ago ~10/20/19 cyanocobalamin (vitamin B-12) 1,000 mcg PO QAM 09/14/19 10/04/20 1 Week Ago [Vitamin B-12] ~11/13/19 garlic 1,000 mg PO QAM 09/14/19 10/04/20 1 Month Ago ~10/20/19 glipizide 5 mg PO UD 09/14/19 10/04/20 11/19/19 07:00 lisinopril 20 mg PO BID 09/14/19 10/04/20 11/19/19 17:00 multivitamin 1 tab PO BID 09/14/19 10/04/20 1 Week Ago ~11/13/19 potassium gluconate 595 mg PO BID 11/15/19 10/04/20 1 Week Ago ~11/13/19 acetaminophen 1,000 mg PO Q8 PRN #90 tab 11/20/19 10/04/20 Unknown celecoxib [Celebrex] 200 mg PO BID PRN #28 cap 11/20/19 10/04/20 Unknown loperamide [Imodium A-D] 2 mg PO QID PRN 11/20/19 10/04/20 11/18/19 08:00 oxycodone 5 mg PO Q6H PRN #30 tab MDD 4 11/20/19 10/04/20 Unknown Amador Tart 1 tab PO QAM 10/04/20 10/04/20 Unknown Focus Factor 1 tab PO QAM 10/04/20 10/04/20 Unknown aspirin 81 mg PO QAM 10/04/20 10/04/20 Unknown duloxetine 20 mg PO QAM 10/04/20 10/04/20 Unknown metformin 1,500 mg PO PM 10/04/20 10/04/20 Unknown omeprazole 20 mg PO BID 10/04/20 10/04/20 Unknown Past Medical History Medical History Abnormal EKG Noted in pre-op prior to EGD in [place] 06/2020 ([facility]). Pt reports being told he may have had an DC, but EKG shows bifascicular block. Arthritis Cancer HX COLON CANCER 2006-CHEMO/RADIATION-RECTAL BIOPSY/NO SURGERY NEEDED Diabetes mellitus, type 2 History of GI bleed no longer to ibuprofen 06/2020 Hyperlipidemia Hypertension Neuropathy RIGHT LEG Skin cancer BASAL CELL/SQUAMOUS CELL Stomach ulcer 06/2020 and will be having another EGD Exercise / Class Metabolic Activity II 4-5 Yardwork/Stairs/Walk up hill (Denies CP or SOB with 1 FOS, went on a 6 mile hile on 2020) Past Family History Family History Brother Family history of diabetes mellitus Mother Family history of diabetes mellitus Past Surgical History Surgical History (Updated 10/10/20 @ 10:56 by Otis Pruitt) H/O hand surgery DEBRIDEMENT LEFT INDEX FINGER 2014 History of colonoscopy History of hydrocelectomy left History of total right hip replacement [facility] 11/2019 Hx of bilateral cataract extraction Hx of esophagogastroduodenoscopy Past Anesthesia History No Family Hx of Anesthesia Complications PT REPORTS H/O SPINAL HEADACHE WITH BLOOD PATCH X 2 WITH 2006 COLON SURGERY. NO ISSUES WITH 2019 SAB. History of PONV No Hx of PONV and Hx of Motion Sickness Social History Smoking Status: Never smoker Do You Dip or Chew Tobacco: No Hx Alcohol Use: Yes Alcohol type: beer alcohol intake frequency: a few times a month Hx Substance Use: No substance use type: does not use Review of Systems Pt denies any recent chest pain, shortness of breath, palpitations, cough, fever, URI, or uncontrolled acid reflux (improved with PPI). Physical Exam Vital Signs BP: 149/76 P: 63bpm SPO2: 95% RA T: 98.7 F R: 16 ENMT Mouth: + dentures and + edentulous Thyromental Distance: > or= 3.5 Finger Breadths Mallampati Class: II Neck normal visual inspection and + limited neck extension Respiratory normal respiratory effort, lungs clear to auscultation Cardiovascular RRR, no murmur, no edema Vessels: no carotid bruit Lab Results Anesthesia Preop Results Results Anesthesia Widget: WBC 5.61 K/uL (4.8-10.8) 10/10/20 Hgb 10.9 g/dL (14.0-18.0) L 10/10/20 Hct 34.3 % (42-52) L 10/10/20 Plt 260 K/uL (130-400) 10/10/20 Na 137 mmol/L (136-145) 10/10/20 K 4.5 mmol/L (3.5-5.1) 10/10/20 Cl 105 mmol/L (98-107) 10/10/20 CO2 28 mmol/L (21-32) 10/10/20 BUN 25 mg/dl (7-18) H 10/10/20 Creat 0.85 mg/dl (0.6-1.4) 10/10/20 Glucose Level 114 mg/dl (70-99) H 10/10/20 PT 11.1 Seconds (9.0-12.0) 10/10/20 PTT 28.3 Seconds (21.0-31.0) 10/10/20 INR 1.1 (0.9-1.1) 10/10/20 HA1c 7.6 % (4.5-5.6) H 10/10/20 Urine Color Yellow 10/10/20 Urine Appearance Clear (Clear) 10/10/20 Urine pH 5.5 (4.5-7.5) 10/10/20 Urine Specific [place] 1.019 (1.000-1.030) 10/10/20 Urine Protein Negative (Negative) 10/10/20 Urine Glucose (UA) Negative (Negative) 10/10/20 Urine Ketones Negative (Negative) 10/10/20 Urine Blood Negative (Negative) 10/10/20 Urine Nitrite Negative (Negative) 10/10/20 Urine Bilirubin Negative (Negative) 10/10/20 Urine Urobilinogen Negative (Negative) 10/10/20 Urine Leukocyte Esterase Negative (Negative) 10/10/20 Blood Type O Positive 10/10/20 Antibody Screen NEGATIVE 10/10/20 Lab Comments: *Chronic anemia x 1 yr, pt has had GI workup, pcp aware and monitoring Testing Electrocardiogram Date: 10/10/20 Chest X-Ray Date: 10/10/20 Findings: + NAD Other Testing Echocardiogram Date: 06/06/19 EF: 55-60% LV is normal in size. Mild concentric LVH. LV systolic function is normal. Left atrium is moderately dilated. No hemodynamically significant valvular aortic stenosis. Trace to mild MR. Trace TR. Trace pulmonic valvular regurgitation. No pericardial effusion. Stress Test Date: 08/10/19 Type: nuclear Resting EF: 58% Electrocardiographically negative for regadenoson-induced ischemic changes, arrhythmias, or conduction disturbances. Normal myocardial perfusion imaging with no evidence of myocardial ischemia or scar. No LV regional wall motion abnormalities.
--- NOTE | 2020-10-20 22:26 | History & Physical Report ---
Date of Service October 22, 2020 Assessment & Plan (1) Failed total hip arthroplasty: I have indicated the patient for revision right anterior total hip replacement, head and liner, possible femur. The risks, benefits and complications of surgery were explained to the patient which include but not limited to infection, acute blood loss, DVT/PE, injury to nerves, vessels, bone, soft tissue, arthrofibrosis, chronic pain, failure of the prosthesis, hip dislocation, leg length discrepancy, need for additional surgery, cardiac and pulmonary events and . The patient wished to proceed with surgery and informed consent was obtained at this time. We will plan for lovenox post- operatively for DVT prophylaxis. Upon discharge the patient will be discharged home with home health services. Appropriate clearances by PCP were obtained. History of Present Illness Chief Complaint: Painful right total hip Primary Care Provider: Kathy Rios The patient is a 75 year old male who presents with complaints of painful right total hip replacement. The patient has failed outpatient conservative treatments to this point which included NSAIDs, activity modification, PT and home exercise program. The patient's pain and limited function have progressed to the point where they severely hinder their activities of daily living and they no longer tolerate exercise programs. They are requesting to proceed with revision total hip replacement surgery. Allergies Allergy/AdvReac Type Severity Reaction Status Date / Time No Known Allergies Allergy Verified 10/22/20 09:40 Home Medications Medication Instructions Recorded Confirmed Type ascorbic acid (vitamin C) [Vitamin 1 g PO QAM 09/14/19 10/04/20 History C] atorvastatin 10 mg PO QPM 09/14/19 10/04/20 History calcium carbonate-vitamin D3 2 tab PO BID 09/14/19 10/04/20 History [Calcium 500 + D] coenzyme Q10 [CoQ-10] 100 mg PO QPM 09/14/19 10/04/20 History cyanocobalamin (vitamin B-12) 1,000 mcg PO QAM 09/14/19 10/04/20 History [Vitamin B-12] garlic 1,000 mg PO QAM 09/14/19 10/04/20 History glipizide 5 mg PO UD 09/14/19 10/04/20 History lisinopril 20 mg PO BID 09/14/19 10/04/20 History multivitamin 1 tab PO BID 09/14/19 10/04/20 History potassium gluconate 595 mg PO BID 11/15/19 10/04/20 History acetaminophen 1,000 mg PO Q8 PRN #90 tab 11/20/19 10/04/20 Rx celecoxib [Celebrex] 200 mg PO BID PRN #28 cap 11/20/19 10/04/20 Rx loperamide [Imodium A-D] 2 mg PO QID PRN 11/20/19 10/04/20 History oxycodone 5 mg PO Q6H PRN #30 tab MDD 4 11/20/19 10/04/20 Rx Amador Tart 1 tab PO QAM 10/04/20 10/04/20 History Focus Factor 1 tab PO QAM 10/04/20 10/04/20 History aspirin 81 mg PO QAM 10/04/20 10/04/20 History duloxetine 20 mg PO QAM 10/04/20 10/04/20 History metformin 1,500 mg PO PM 10/04/20 10/04/20 History omeprazole 20 mg PO BID 10/04/20 10/04/20 History Past Med/Surg History Medical History Abnormal EKG Noted in pre-op prior to EGD in [place] 06/2020 ([facility]). Pt reports being told he may have had an AZ, but EKG shows bifascicular block. Arthritis Cancer HX COLON CANCER 2006-CHEMO/RADIATION-RECTAL BIOPSY/NO SURGERY NEEDED Diabetes mellitus, type 2 History of GI bleed no longer to ibuprofen 06/2020 Hyperlipidemia Hypertension Neuropathy RIGHT LEG Skin cancer BASAL CELL/SQUAMOUS CELL Stomach ulcer 06/2020 and will be having another EGD Surgical History H/O hand surgery DEBRIDEMENT LEFT INDEX FINGER 2014 History of colonoscopy History of hydrocelectomy left History of total right hip replacement [facility] 11/2019 Hx of bilateral cataract extraction Hx of esophagogastroduodenoscopy Family History Brother Family history of diabetes mellitus Mother Family history of diabetes mellitus Social History Smoking Status: Never smoker Second Hand Exposure: Yes ( A CHILD); Do You Dip or Chew Tobacco: No; Tobacco Cessation Education Requested by Patient: No Hx Alcohol Use: Yes Alcohol type: beer Hx Substance Use: No Preferred Language: Latvian Communication Ability: Effective 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 Constitutional: WD/WN, vitals as above Eyes: PERRL, conjunctivae normal, anicteric sclerae ENMT: external ear and nose normal, oropharynx normal Neck: trachea midline, no thyromegaly Respiratory: normal respiratory effort, lungs clear to auscultation Cardiovascular: RRR, no murmur, no edema Gastrointestinal (Abdomen): normal bowel sounds, soft, nontender, no hepatosplenomegaly Musculoskeletal: no cyanosis or clubbing, extremities motor strength 5/5 Skin: no rashes, warm and dry Neurologic: patellar DTR's 2+ bilat, sensation intact Psychiatric: A+Ox3, euthymic affect Lymphatic: no cervical or axillary lymphadenopathy Results & Data Results & Data ([facility]) Diagnostic Findings Xrays of right hip demonstrate subsidence of femoral stem when compared to intra-operative images. Bone scan negative for gross loosening or infection.
[~2020-10-22 08:39] MED LIST: ACETAMINOPHEN 500 MG TAB PO SCH; BUPIVACAINE 0.25% 30 ML VIAL ONE; BUPIVACAINE 0.5 % 5 MG/1 ML PF 10ML VIAL ONE; CeleBREX 200 MG CAP PO SCH; EPINEPHrine INJ 1 MG/ML AMP ONE; FAMOTIDINE 20 MG TAB PO SCH; GABAPENTIN 300 MG CAP PO SCH; LR 15ML/HR IV SCH; METOCLOPRAMIDE HCL 10 MG TABLET PO SCH; TRANEXAMIC ACID 1,000 MG **IV Intra-op IV SCH; TRANEXAMIC ACID 1,000 MG **IV Pre-op IV SCH; VANCOMYCIN HCL 1,250 MG in SODIUM CHLORIDE 0.9% 250 ML IV SCH; ceFAZolin 2000MG 2,000 MG/15 ML SYR IV SCH; oxyCODONE HCL 10 MG TABCR (OxyCONTIN) PO SCH
--- NOTE | 2020-10-22 09:56 | History & Physical Bridge Note ---
Date of Service October 22, 2020 History & Physical Bridge Note I have examined the patient, reviewed the History & Physical and in the interval since the performance of the History & Physical I have noted the following changes of clinical significance: no changes noted
[2020-10-22] MEDS ORDERED: TRANEXAMIC ACID / 0.7% NACL 1000MG/100ML BAG IV ONE (10:04)
[2020-10-22] MEDS ORDERED: fentaNYL citrate 100 MCG/2 ML VIAL ONE (10:42)
[2020-10-22] MEDS ORDERED: LIDOCAINE 2% 2 ML VIAL/AMP(20MG/ML) INFIL ONE (10:42)
[2020-10-22] MEDS ORDERED: PROPOFOL IV EMULSION 10 MG/ML 20 ML VIAL IV ONE (10:42)
[2020-10-22] MEDS ORDERED: MIDAZOLAM HCL 1 MG/ML 2ML VIAL ONE (10:42)
[2020-10-22] MEDS ORDERED: ROPIVACAINE 0.5% HCL/PF 150 MG, BUPIVACAINE 0.75% MPF 20 ML, EPINEPHrine 0.15 MG, Ketor... INFIL SCH (11:14)
[2020-10-22] MEDS ORDERED: ONDANSETRON INJ 2 MG/ML 2 ML VIAL IV PRN ×2 (11:18→16:58)
[2020-10-22] MEDS ORDERED: ePHEDrine sulfate 50 MG/ML AMP IV PRN (11:18)
[2020-10-22] MEDS ORDERED: ATROPINE SULFATE 0.1 MG/ML 10ML SYR IV PRN (11:18)
[2020-10-22] MEDS ORDERED: fentaNYL citrate 100 MCG/2 ML VIAL IV PRN (11:18)
[2020-10-22] MEDS ORDERED: HYDROmorphone INJ 2 MG/ML SYR/VIAL IV PRN (11:18)
[2020-10-22] MEDS ORDERED: PROMETHAZINE HCL 12.5 MG in SODIUM CHLORIDE 0.9% 50 ML IV PRN (11:18)
[2020-10-22] MEDS ORDERED: ePHEDrine sulfate 50 MG/ML SYR ONE (12:25)
[2020-10-22] MEDS ORDERED: KETAMINE 50 MG/5 ML SYRINGE ONE (12:37)
[2020-10-22 13:48] LABS: Appearance Synovial Fluid BLOODY; Color Synovial Fluid RED; Mononuclear WBC Synovial 20.4 %; Polynuclear WBC Synovial 79.6 %; RBC Synovial Fluid (A) 1280000 /uL; Source Synovial Fluid HIP; WBC Synovial Fluid (A) 14847 /ul (0-200)
--- NOTE | 2020-10-22 14:20 | Post Operative Brief Note ---
Immediate Post Op Note v1 Date of Surgery October 22, 2020 Pre & Post Diagnosis Operation Date: 10/22/20 11:25 Pre-Op Diagnosis: Failure of Internal Right Hip Prothesis Status Post Right Total Hip Arthroplasty Post-Op Diagnosis: Failure of Internal Right Hip Prothesis Status Post Right Total Hip Arthroplasty I identified the patient and participated in the time-out.: Yes Procedure Operation Date: 10/22/20 11:25 Actual Procedures p Right Anterior Total Hip Arthroplasty Revision; Head and Liner Exchange(Right) - Sadi Butler DO Surgeon Sadi Butler DO Street Light Mechanic Brendan Schwartz Estimated Blood Loss 225 Findings Consistent with Post-Op Diagnosis Fluids See anesthesia note Specimens Synovial fluid Tissue culture deep x2 Anesthesia Type Spinal MAC Complications none Disposition Disposition: Recovery Room Overlapping Procedure I was present for: the critical portions of procedure. I was immediately available: during the entire case. Back up surgeon: was not required during procedure.
--- NOTE | 2020-10-22 14:22 | Operative Report ---
Post Operative Report Pre & Post Diagnosis Operation Date: 10/22/20 11:25 Pre-Op Diagnosis: Failure of Internal Right Hip Prothesis Status Post Right Total Hip Arthroplasty Post-Op Diagnosis: Failure of Internal Right Hip Prothesis Status Post Right Total Hip Arthroplasty I identified the patient and participated in the time-out.: Yes Procedure Operation Date: 10/22/20 11:25 Actual Procedures p Right Anterior Total Hip Arthroplasty Revision; Head and Liner Exchange(Right) - Sadi Butler DO Surgeon Sadi Butler, Breaker Unit Assembler Brendan Schwartz Estimated Blood Loss 225 Findings Consistent with Post-Op Diagnosis Fluids See anesthesia report Specimens Synovial fluid Tissue culture deep x2 Anesthesia Type Spinal MAC Complications none Disposition Disposition: Recovery Room Indications The patient is a 75 year old male who presents with complaints of painful right total hip replacement. The patient has failed outpatient conservative treatments to this point which included NSAIDs, activity modification, PT and home exercise program. The patient's pain and limited function have progressed to the point where they severely hinder their activities of daily living and they no longer tolerate exercise programs. They are requesting to proceed with revision total hip replacement surgery. I have indicated the patient for revision right anterior total hip replacement, head and liner, possible femur. The risks, benefits and complications of surgery were explained to the patient which include but not limited to infection, acute blood loss, DVT/PE, injury to nerves, vessels, bone, soft tissue, arthrofibrosis, chronic pain, failure of the prosthesis, hip dislocation, leg length discrepancy, need for additional surgery, cardiac and pulmonary events and . The patient wished to proceed with surgery and informed consent was obtained at this time. We will plan for lovenox post- operatively for DVT prophylaxis. Upon discharge the patient will be discharged home with home health services. Appropriate clearances by PCP were obtained. Description of Procedure COMPONENTS USED: [employer] hip system: femoral head 36+8, R3 liner 58x36 DESCRIPTION OF PROCEDURE: Following satisfactory general anesthesia, the patient was placed supine on the OR table. The left leg was placed in the well leg gregory and the right leg in the traction device. The right leg was prepared with ChloraPrep and draped sterilely. A surgical timeout was performed, patient identified and site pablo verified. Appropriate antibiotics were given. A standard anterior approach in the interval between the sartorius and tensor muscles was performed in line with prior incision. Dissection was carried down through subcutaneous tissues. Electrocautery was utilized for hemostasis. A capsulectomy was was performed exposing the joint and prosthesis. Synovial tissue sample was obtained and sent for cell count Gram stain and culture. Deep tissue cultures with swabs x2 were obtained. Meticulous removal of intra-articular scar tissue was performed with bovie. The hip prosthesis was dislocated by traction and external rotation in a controlled manner. The femoral head was removed from the trunion, which was clean and was without signs of wear. The femoral stem stability assessed and found to be stable without signs of loosening. Next, exposure of the acetabulum was obtained. Additional scar tissue removal and debridement of the intra-articular soft tissue was performed. Utilizing the liner extraction tool the liner was removed. The polyethylene liner demonstrated superior wear. Acetabular cup stability was assessed and found to be stable and without signs of loosening. The cup was irrigated to ensure all debris was removed. A final 58x36 acetabular liner was inserted and properly seated. Access to the proximal femur was once more gained and the final 36+8 mm femoral head was impacted into place and the hip was reduced. Soft tissue tension was restored and the leg lengths were equal. A Betadine soak was performed. After 3 minutes, the hip was once more irrigated with copious sterile saline solution, 9 liters in total. Felipa- incisional soft tissue was injected utilizing [place] [employer] which includes a combination of Ropivicaine 0.5% 150mg, Bupivicaine 0.5%/Epinephrine 1:200,000 30ml, Toradol 30mg, Dexamethasone 4mg, Ketamine 10mg, Clonidine 100mcg and NSS 30ml solution. The deep tissue plane and fascia was closed with #1 Vicryl, the subcutaneous tissues with 2-0 Vicryl. The skin was closed with marleny and a sterile dry dressing was applied which included JUD incisional VAC. The patient tolerated the procedure well and was transported to PACU in stable condition. Due to the complex nature of the procedure, the entire surgery was performed with the operational assistance of Brendan Schwartz PA-C. The commercial assistant, under direct supervision, was involved in the actual performance of all aspects of the surgical procedure including patient positioning, hemostasis, tissue retraction, instrument management and wound closure. I attest to the content of the Intraoperative Record and any orders documented therein. Any exceptions are noted below.
--- NOTE | 2020-10-22 14:28 | Fluoroscopy Report ---
FL hip RT 1V CLINICAL HISTORY: Right anterior total hip revision. COMPARISON STUDY: None. FLUOROSCOPY TIME: 21 seconds. FINDINGS: 2 fluoroscopic spot images of the right hip demonstrate a right total hip arthroplasty. The hardware appears intact. No fracture or dislocation. IMPRESSION: Fluoroscopy provided for right total hip arthroplasty. ACT 112: Negative or not required by law. Electronically signed by: Hao Barrientos M.D. 10/22/2020 2:27 PM
[2020-10-22 14:29] LABS: iSTAT Creatinine 0.8 mg/dl (0.6-1.3); iSTAT Hemoglobin 9.5 g/dl (14.0-18.0); iSTAT Ionized Calcium 1.25 mmol/l (1.12-1.32); iSTAT Potassium 4.2 mmol/L (3.3-5.0)
--- NOTE | 2020-10-22 15:04 | Anesthesiology Progress Note ---
Date of Service October 22, 2020 Anesthesia Post Procedure Vital Signs Vital Signs: Temp Pulse Pulse Resp BP BP Pulse Ox 10/22/20 15:00 60 19 140/60 97 10/22/20 14:44 36.2 C L 60 15 122/60 96 10/22/20 09:32 37 C 56 L 20 130/64 96 Transfer of Care Handoff Completed per policy Notes Mental Status: alert / awake / arousable and participated in evaluation Patient Amnestic to Procedure: Yes Nausea / Vomiting: adequately controlled Pain: adequately controlled Airway Patency, RR, SpO2: stable & adequate BP & HR: stable & adequate Hydration State: stable & adequate Neuraxial Anesthesia: was administered and sensory block is resolving Anesthetic Complications: no major complications apparent and Pt Satisfied with anesthetic care
--- NOTE | 2020-10-22 15:34 | XRay Report ---
XR hip 1V RT w pelvis HISTORY: 75 years-old Male IN PACU - A/P PELVIS and LATERAL HIP right hip total joint arthroplasty COMPARISON: Pelvis and hip radiographs 11/20/2019 TECHNIQUE: AP view the pelvis with crosstable lateral view of the right hip FINDINGS: Severe left hip posterior arthritis with chronic remodeling changes. Right hip total joint arthroplas ty. Lateral skin marleny are noted with expected postoperative soft tissue swelling and deep tissue a ir. No unexpected opaque foreign bodies. IMPRESSION: 1. Right hip total joint arthroplasty with expected postoperative changes. 2. Severe osteoarthritis of the left hip. ACT 112: Negative or not required by law. The above report was generated using voice recognition software. It may contain grammatical, syntax o r spelling errors. Electronically signed by: Bryant Renner M.D. 10/22/2020 3:33 PM
--- NOTE | 2020-10-22 16:11 | Orthopedic Progress Note ---
Date of Service October 22, 2020 Assessment & Plan (1) Failed total hip arthroplasty: s/p revision R anterior YENNY, head and liner -ancef x 24 -DVT ppx: SCDs, TEDs, 81mg ASA BID -WBAT RLE -PT/OT -PO XR demonstrates well aligned well fixed prothesis without fracture/dislocation -f/u IA cultures, GS negative. -am labs -DC planning Subjective Post Operative Progress Note Patient seen in PACU, comfortable, denies complaints, pain well controlled, no acute issues. Review of Systems Review of Systems: All systems reviewed & are unremarkable except as noted in HPI & below Constitutional: as per Subjective / HPI Physical Exam Physical Exam: RLE PE limited secondary to spinal, +2 DP pulse, compartments soft NT, dressing CDI. Constitutional: WD/WN, vitals as above Eyes: PERRL, conjunctivae normal, anicteric sclerae ENMT: external ear and nose normal, oropharynx normal Neck: trachea midline, no thyromegaly Respiratory: normal respiratory effort, lungs clear to auscultation Cardiovascular: RRR, no murmur, no edema Gastrointestinal (Abdomen): normal bowel sounds, soft, nontender, no hepatosplenomegaly Musculoskeletal: no cyanosis or clubbing, extremities motor strength 5/5 Skin: no rashes, warm and dry Neurologic: patellar DTR's 2+ bilat, sensation intact Psychiatric: A+Ox3, euthymic affect Lymphatic: no cervical or axillary lymphadenopathy Results & Data ([facility]) Vital Signs (Past 12 Hours) Vital Signs Temp Pulse Pulse Resp BP BP Pulse Ox 10/22/20 16:05 57 L 15 92/57 L 98 10/22/20 15:50 55 L 16 104/57 L 94 10/22/20 15:35 51 L 14 123/60 94 10/22/20 15:20 36.1 C L 51 L 20 130/61 96 10/22/20 15:10 51 L 16 123/70 93 10/22/20 15:00 60 19 140/60 97 10/22/20 14:50 55 L 19 123/60 92 10/22/20 14:44 36.2 C L 60 15 122/60 96 10/22/20 09:32 37 C 56 L 20 130/64 96
[2020-10-22] MEDS ORDERED: VANCOMYCIN CONSULT ACTIVE PRN (16:58)
[2020-10-22] MEDS ORDERED: MAGNESIUM HYDROXIDE SUSP 30 ML UDC PO PRN (16:58)
[2020-10-22] MEDS ORDERED: METOCLOPRAMIDE HCL INJ 5 MG/ML 2 ML VIAL IV PRN (16:58)
[2020-10-22] MEDS ORDERED: NALOXONE HCL 0.4 MG/1 ML VIAL/CARP IV PRN (16:58)
[2020-10-22] MEDS ORDERED: diphenhydrAMINE Capsule 25 MG CAP PO PRN (16:58)
[2020-10-22] MEDS ORDERED: bisacodyL 10 MG SUPP PR PRN (16:58)
[2020-10-22] MEDS ORDERED: HYDROmorphone INJ 0.5 MG/0.5 ML SYR IV PRN (16:58)
[2020-10-22] MEDS ORDERED: oxyCODONE HCL IR 5 MG TAB (IMMEDIATE RELEASE) PO PRN (16:58)
[2020-10-22 17:17] LABS: Hemoglobin 9.9 g/dL (14.0-18.0)
[2020-10-22] MEDS: SODIUM CHLORIDE 0.9% 1000ML 1,000 ML IV SCH (17:55)
[2020-10-22] MEDS ORDERED: PHARMACY GLYCEMIC MGMT CONSULT PRN (17:56)
[2020-10-22] MEDS ORDERED: GLUCAGON FOR INJ 1 MG VIAL IM PRN (18:00)
[2020-10-22] MEDS ORDERED: DEXTROSE 50% 50 ML SYRINGE IV PRN (18:00)
[2020-10-22] MEDS ORDERED: CARBOHYDRATES FOR HYPOGLYCEMIA PO PRN (18:00)
[2020-10-22] MEDS ORDERED: GLUCOSE 10 TABS/TUBE PO PRN (18:00)
[2020-10-22] MEDS ORDERED: GLUCOSE 40% GEL 15 GM TUBE PO PRN (18:00)
[2020-10-22] MEDS: INSULIN ASPART 100 UNITS/ML 3 ML PEN SC SCH ×2 (18:17→21:24)
[2020-10-22] MEDS ORDERED: INSULIN GLARGINE SOLOSTAR 100 UNITS/ML 3 ML PEN SC ONE (18:30)
[2020-10-22] MEDS: KETOROLAC TROMETHAMINE 15 MG/ML VIAL IV SCH (20:13)
[2020-10-22] MEDS: ceFAZolin 2000MG 2,000 MG/15 ML SYR IV SCH (20:14)
[2020-10-22] MEDS: ACETAMINOPHEN 500 MG TAB PO SCH (20:41)
[2020-10-22] MEDS: lisinopril 20 MG TAB PO SCH (20:42)
[2020-10-22] MEDS: ATORVASTATIN 10 MG TAB PO SCH (20:42)
[2020-10-22] MEDS: SENNA 8.6 MG TAB PO SCH ×2 (20:42→20:49)
[2020-10-22] MEDS: PANTOprazole 40 MG TAB PO SCH (20:43)
[2020-10-22] MEDS: DOCUSATE SODIUM 100 MG CAP PO SCH ×2 (20:43→20:49)
[2020-10-22] MEDS ORDERED: NON-FORMULARY MEDICATION (Potassium Gluconate 595 mg (99 mg) Tablet) PO SCH (21:00)
[2020-10-22] MEDS ORDERED: CeleBREX 200 MG CAP PO SCH (21:00)
[2020-10-22] MEDS: VANCOMYCIN HCL 1,250 MG in SODIUM CHLORIDE 0.9% 250 ML IV SCH (21:23)
[2020-10-23] MEDS: KETOROLAC TROMETHAMINE 15 MG/ML VIAL IV SCH ×3 (01:33→14:56)
[2020-10-23] MEDS: SODIUM CHLORIDE 0.9% 1000ML 1,000 ML IV SCH (03:03)
[2020-10-23] MEDS: ACETAMINOPHEN 500 MG TAB PO SCH ×3 (04:39→21:09)
[2020-10-23] MEDS: ceFAZolin 2000MG 2,000 MG/15 ML SYR IV SCH ×3 (04:39→20:12)
[2020-10-23] MEDS ORDERED: TRANEXAMIC ACID 1,000 MG **IV Pre-op IV SCH (06:00)
[2020-10-23] MEDS ORDERED: ACETAMINOPHEN 500 MG TAB PO SCH (06:00)
[2020-10-23] MEDS ORDERED: CeleBREX 200 MG CAP PO SCH (06:00)
[2020-10-23] MEDS ORDERED: oxyCODONE HCL 10 MG TABCR (OxyCONTIN) PO SCH (06:00)
[2020-10-23] MEDS ORDERED: FAMOTIDINE 20 MG TAB PO SCH (06:00)
[2020-10-23] MEDS ORDERED: ceFAZolin 2000MG 2,000 MG/15 ML SYR IV SCH (06:00)
[2020-10-23] MEDS ORDERED: METOCLOPRAMIDE HCL 10 MG TABLET PO SCH ×2 (06:00)
[2020-10-23] MEDS ORDERED: GABAPENTIN 300 MG CAP PO SCH (06:00)
[2020-10-23] MEDS ORDERED: TRANEXAMIC ACID 1,000 MG **IV Intra-op IV SCH (06:00)
[2020-10-23 06:41] LABS: Basophils # (auto) 0.01 K/uL (0-0.2); Basophils % (auto) 0.1 %; Hematocrit (blood only) 27.3 % (42-52); Hemoglobin 8.6 g/dL (14.0-18.0); Immature Granulocytes # (auto) 0.02 K/uL (0.00-0.02); Immature Granulocytes % (auto) 0.2 %; Lymphocytes % (auto) 10.7 %; Mean Corpuscular Hemoglobin 28.4 pg (25-34); Mean Corpuscular Hgb Conc 31.5 g/dL (32-36); Mean Corpuscular Volume 90.1 fL (80-100); Mean Platelet Volume 9.8 fL (7.4-10.4); Monocytes # (auto) 0.62 K/uL (0.11-0.59); Monocytes % (auto) 7.3 %; Neutrophils % (auto) 81.7 %; Platelet Count 201 K/uL (130-400); RDW Coefficient of Variation 15.2 % (11.5-14.5); RDW Standard Deviation 50.5 fL (36.4-46.3); Red Blood Count 3.03 M/uL (4.7-6.1); White Blood Count 8.45 K/uL (4.8-10.8)
[2020-10-23 07:20] LABS: BUN Creatinine Ratio 25.1 (10-20); Calcium 8.3 mg/dl (8.5-10.1); Creatinine Clr Calc Pharmacy 76.3 ml/min; Est GFR (African American) 95.6 ml/min; Est GFR (Non-African American) 82.5 ml/min; Potassium 4.4 mmol/L (3.5-5.1)
[2020-10-23] MEDS: lisinopril 20 MG TAB PO SCH ×2 (08:10→20:18)
[2020-10-23] MEDS: MULTIVITAMIN TAB PO SCH (08:11)
[2020-10-23] MEDS: PANTOprazole 40 MG TAB PO SCH ×2 (08:11→20:17)
[2020-10-23] MEDS: DULoxetine HCL 20 MG CAP PO SCH (08:11)
[2020-10-23] MEDS: DOCUSATE SODIUM 100 MG CAP PO SCH ×2 (08:11→20:17)
--- NOTE | 2020-10-23 08:17 | Orthopedic Progress Note ---
Date of Service October 23, 2020 Assessment & Plan (1) Failed total hip arthroplasty: s/p revision R anterior YENNY, head and liner POD#1 -ancef/vanco x 24 -DVT ppx: SCDs, TEDs, Lovenox daily -WBAT RLE -PT/OT -PO XR demonstrates well aligned well fixed prothesis without fracture/dislocation -f/u IA cultures, GS negative. -am labs - as above, hgb 8.6 -DC planning Admission and Anticipated Discharge Date Admission Date: October 22, 2020 Subjective Post Operative Progress Note Patient seen sitting up in bed, comfortable, denies complaints, pain well controlled, no acute issues. Denies F/C/N/V/SOB/CP. Review of Systems Review of Systems: All systems reviewed & are unremarkable except as noted in HPI & below Constitutional: as per Subjective / HPI Physical Exam Physical Exam: RLE NVSI +EHL/FHL/TA/GS SILT grossly, +2 DP pulse, compartments soft NT, dressing cdi. Constitutional: WD/WN, vitals as above Results & Data ([facility]) Vital Signs (Past 12 Hours) Vital Signs Temp Pulse Resp BP BP Pulse Ox 10/23/20 04:17 36.7 C 48 L 18 106/54 L 96 10/22/20 23:05 36.7 C 50 L 18 101/53 L 97 Laboratory Results 10/23/20 10/23/20 10/22/20 Range/Units 06:03 06:03 20:55 WBC 8.45 (4.8-10.8) K/uL RBC 3.03 L (4.7-6.1) M/uL Hgb 8.6 L (14.0-18.0) g/dL POC Hgb (14.0-18.0) g/dl Hct 27.3 L (42-52) % POC Hct (42-52) % MCV 90.1 (80-100) fL MCH 28.4 (25-34) pg MCHC 31.5 L (32-36) g/dL RDW Std Deviation 50.5 H (36.4-46.3) fL RDW Coeff of Rock 15.2 H (11.5-14.5) % Plt Count 201 (130-400) K/uL MPV 9.8 (7.4-10.4) fL Immature Gran % (Auto) 0.2 % Neut % (Auto) 81.7 % Lymph % (Auto) 10.7 % Sioux % (Auto) 7.3 % Eos % (Auto) 0.0 % Baso % (Auto) 0.1 % Neut # (Auto) 6.90 H (1.4-6.5) K/uL Lymph # (Auto) 0.90 L (1.2-3.4) K/uL Sioux # (Auto) 0.62 H (0.11-0.59) K/uL Eos # (Auto) 0.00 (0-0.5) K/uL Baso # (Auto) 0.01 (0-0.2) K/uL Immature Gran # (Auto) 0.02 (0.00-0.02) K/uL POC Sodium (135-144) mmol/L Sodium 137 (136-145) mmol/L POC Potassium (3.3-5.0) mmol/L Potassium 4.4 (3.5-5.1) mmol/L POC Chloride (101-112) mmol/L Chloride 106 (98-107) mmol/L Carbon Dioxide 29 (21-32) mmol/L POC Total CO2 (24-31) mmol/L Anion Gap 2.0 L (3-11) POC Anion Gap (16-25) mmol/L POC BUN (7-18) mg/dl BUN 22 H (7-18) mg/dl Creatinine 0.89 (0.6-1.4) mg/dl POC Creatinine (0.6-1.3) mg/dl Est Cr Clr Drug Dosing 76.3 ml/min Est GFR ( Amer) 95.6 ml/min Est GFR (Non-Af Amer) 82.5 ml/min BUN/Creatinine Ratio 25.1 H (10-20) Glucose 143 H (70-99) mg/dl POC Glucose 164 H (70-99) mg/dl POC Glucose (other) (70-99) mg/dl Calcium 8.3 L (8.5-10.1) mg/dl POC Ioniz Calcium Clinton (1.12-1.32) mmol/l Fluid Comment Synovial Source Synovial Color Synovial Appearance Synovial WBC (0-200) /ul Synovial RBC /uL Synovial Polynuclear % % Synovial Mononuclear % % COVID-19 Eval Order SARS-CoV-2, RNA, NAAT (NEGATIVE) Blood Type Antibody Screen Crossmatch 10/22/20 10/22/20 10/22/20 Range/Units 17:26 17:09 14:49 WBC (4.8-10.8) K/uL RBC (4.7-6.1) M/uL Hgb 9.9 L (14.0-18.0) g/dL POC Hgb (14.0-18.0) g/dl Hct 31.0 L (42-52) % POC Hct (42-52) % MCV (80-100) fL MCH (25-34) pg MCHC (32-36) g/dL RDW Std Deviation (36.4-46.3) fL RDW Coeff of Rock (11.5-14.5) % Plt Count (130-400) K/uL MPV (7.4-10.4) fL Immature Gran % (Auto) % Neut % (Auto) % Lymph % (Auto) % Sioux % (Auto) % Eos % (Auto) % Baso % (Auto) % Neut # (Auto) (1.4-6.5) K/uL Lymph # (Auto) (1.2-3.4) K/uL Sioux # (Auto) (0.11-0.59) K/uL Eos # (Auto) (0-0.5) K/uL Baso # (Auto) (0-0.2) K/uL Immature Gran # (Auto) (0.00-0.02) K/uL POC Sodium (135-144) mmol/L Sodium (136-145) mmol/L POC Potassium (3.3-5.0) mmol/L Potassium (3.5-5.1) mmol/L POC Chloride (101-112) mmol/L Chloride (98-107) mmol/L Carbon Dioxide (21-32) mmol/L POC Total CO2 (24-31) mmol/L Anion Gap (3-11) POC Anion Gap (16-25) mmol/L POC BUN (7-18) mg/dl BUN (7-18) mg/dl Creatinine (0.6-1.4) mg/dl POC Creatinine (0.6-1.3) mg/dl Est Cr Clr Drug Dosing ml/min Est GFR ( Amer) ml/min Est GFR (Non-Af Amer) ml/min BUN/Creatinine Ratio (10-20) Glucose (70-99) mg/dl POC Glucose 293 H 157 H (70-99) mg/dl POC Glucose (other) (70-99) mg/dl Calcium (8.5-10.1) mg/dl POC Ioniz Calcium [place] (1.12-1.32) mmol/l Fluid Comment Synovial Source Synovial Color Synovial Appearance Synovial WBC (0-200) /ul Synovial RBC /uL Synovial Polynuclear % % Synovial Mononuclear % % COVID-19 Eval Order SARS-CoV-2, RNA, NAAT (NEGATIVE) Blood Type Antibody Screen Crossmatch 10/22/20 10/22/20 10/22/20 Range/Units 13:59 13:05 09:36 WBC (4.8-10.8) K/uL RBC (4.7-6.1) M/uL Hgb (14.0-18.0) g/dL POC Hgb 9.5 L (14.0-18.0) g/dl Hct (42-52) % POC Hct 28 L (42-52) % MCV (80-100) fL MCH (25-34) pg MCHC (32-36) g/dL RDW Std Deviation (36.4-46.3) fL RDW Coeff of Rock (11.5-14.5) % Plt Count (130-400) K/uL MPV (7.4-10.4) fL Immature Gran % (Auto) % Neut % (Auto) % Lymph % (Auto) % [place] % (Auto) % Eos % (Auto) % Baso % (Auto) % Neut # (Auto) (1.4-6.5) K/uL Lymph # (Auto) (1.2-3.4) K/uL [place] # (Auto) (0.11-0.59) K/uL Eos # (Auto) (0-0.5) K/uL Baso # (Auto) (0-0.2) K/uL Immature Gran # (Auto) (0.00-0.02) K/uL POC Sodium 138 (135-144) mmol/L Sodium (136-145) mmol/L POC Potassium 4.2 (3.3-5.0) mmol/L Potassium (3.5-5.1) mmol/L POC Chloride 101 (101-112) mmol/L Chloride (98-107) mmol/L Carbon Dioxide (21-32) mmol/L POC Total CO2 28 (24-31) mmol/L Anion Gap (3-11) POC Anion Gap 14.0 L (16-25) mmol/L POC BUN 31 H (7-18) mg/dl BUN (7-18) mg/dl Creatinine (0.6-1.4) mg/dl POC Creatinine 0.8 (0.6-1.3) mg/dl Est Cr Clr Drug Dosing ml/min Est GFR ( Amer) ml/min Est GFR (Non-Af Amer) ml/min BUN/Creatinine Ratio (10-20) Glucose (70-99) mg/dl POC Glucose (70-99) mg/dl POC Glucose (other) 144 H (70-99) mg/dl Calcium (8.5-10.1) mg/dl POC Ioniz Calcium [place] 1.25 (1.12-1.32) mmol/l Fluid Comment Synovial Source HIP Synovial Color RED Synovial Appearance BLOODY Synovial WBC 56545 H (0-200) /ul Synovial RBC [id number] /uL Synovial Polynuclear % 79.6 % Synovial Mononuclear % 20.4 % COVID-19 Eval Order SARS-CoV-2, RNA, NAAT NEGATIVE (NEGATIVE) Blood Type Antibody Screen Crossmatch 10/22/20 10/22/20 10/22/20 Range/Units 09:36 09:33 09:28 WBC (4.8-10.8) K/uL RBC (4.7-6.1) M/uL Hgb (14.0-18.0) g/dL POC Hgb (14.0-18.0) g/dl Hct (42-52) % POC Hct (42-52) % MCV (80-100) fL MCH (25-34) pg MCHC (32-36) g/dL RDW Std Deviation (36.4-46.3) fL RDW Coeff of Rock (11.5-14.5) % Plt Count (130-400) K/uL MPV (7.4-10.4) fL Immature Gran % (Auto) % Neut % (Auto) % Lymph % (Auto) % [place] % (Auto) % Eos % (Auto) % Baso % (Auto) % Neut # (Auto) (1.4-6.5) K/uL Lymph # (Auto) (1.2-3.4) K/uL [place] # (Auto) (0.11-0.59) K/uL Eos # (Auto) (0-0.5) K/uL Baso # (Auto) (0-0.2) K/uL Immature Gran # (Auto) (0.00-0.02) K/uL POC Sodium (135-144) mmol/L Sodium (136-145) mmol/L POC Potassium (3.3-5.0) mmol/L Potassium (3.5-5.1) mmol/L POC Chloride (101-112) mmol/L Chloride (98-107) mmol/L Carbon Dioxide (21-32) mmol/L POC Total CO2 (24-31) mmol/L Anion Gap (3-11) POC Anion Gap (16-25) mmol/L POC BUN (7-18) mg/dl BUN (7-18) mg/dl Creatinine (0.6-1.4) mg/dl POC Creatinine (0.6-1.3) mg/dl Est Cr Clr Drug Dosing ml/min Est GFR ( Amer) ml/min Est GFR (Non-Af Amer) ml/min BUN/Creatinine Ratio (10-20) Glucose (70-99) mg/dl POC Glucose 156 H (70-99) mg/dl POC Glucose (other) (70-99) mg/dl Calcium (8.5-10.1) mg/dl POC Ioniz Calcium [place] (1.12-1.32) mmol/l Fluid Comment Synovial Source Synovial Color Synovial Appearance Synovial WBC (0-200) /ul Synovial RBC /uL Synovial Polynuclear % % Synovial Mononuclear % % COVID[facility]19 [facility], RNA, NAAT (NEGATIVE) Blood Type O Positive Antibody Screen NEGATIVE Crossmatch See Detail
[2020-10-23] MEDS ORDERED: ASPIRIN 81 MG ECTAB PO SCH (09:00)
[2020-10-23] MEDS: INSULIN ASPART 100 UNITS/ML 3 ML PEN SC SCH ×4 (09:35→21:08)
[2020-10-23] MEDS: ENOXAPARIN INJ 40 MG/0.4 ML SYR SQ SCH (10:54)
[2020-10-23] MEDS: VANCOMYCIN HCL 1,250 MG in SODIUM CHLORIDE 0.9% 250 ML IV SCH ×2 (10:54→21:09)
--- NOTE | 2020-10-23 11:27 | Pharmacy Report ---
Pharmacy Glycemic Short Note 2 - Date of Service October 23, 2020 - Glycemic Short BSG Results (Last 24 hours): 10/22/20 10/22/20 10/22/20 13:59 14:49 17:26 Glucose POC Glucose 157 H 293 H POC Glucose (other) 144 H 10/22/20 10/23/20 10/23/20 20:55 06:03 08:46 Glucose 143 H POC Glucose 164 H 152 H POC Glucose (other) OUTPATIENT ANTIDIABETIC REGIMEN: * Glipizide 5mg PO Qam + 2.5mg pm * Metformin 1,500 mg PO QDD * A1c = 7.6% on 10/10/20 ASSESSMENT: * 75 yo T2DM male with adequate outpatient control per recent A1c * Pt is maintained on oral antidiabetic agents as an outpatient * Oral agents are not recommended for inpatient use d/t drug interactions, changing PO intake, and difficulty titrating for acute hyper/hypoglycemia. ADA recommends re-initiating outpatient oral agents 1-2 days prior to discharge if/when appropriate if they were held on admission. * Will hold oral agents for admission and utilize SQ basal bolus insulin regimen which is the recommended regimen for inpatient glycemic control. * Will initiate weight based insulin dosing for insulin jade patient and titrate based on BSG trends. * Slightly stress Lantus dose on POD#0 since dexamethasone given topically in OR PLAN FOR INPATIENT GLYCEMIC CONTROL: * Hold outpatient oral diabetes medications * Basal insulin * Lantus 20 units SQ x 1 dose on POD#0 * Lantus 17 units (~0.2 units/kg) thereafter starting POD#1 * Bolus insulin * NovoLog per scale ACHS or Q6hrs while NPO * Goal Range: Low 110 mg/dL - High 140 mg/dL * Correction Factor: 25 mg/dL/unit * Nutritional / Prandial insulin per carb ratio of 1 unit per 8 grams CHO consumed PLAN FOR DISCHARGE: * A1c is in goal range for age/co-morbidities. No changes needed to outpatient regimen.
[2020-10-23] MEDS: INSULIN GLARGINE SOLOSTAR 100 UNITS/ML 3 ML PEN SC SCH (18:31)
[2020-10-23] MEDS: SENNA 8.6 MG TAB PO SCH (20:16)
[2020-10-23] MEDS: ATORVASTATIN 10 MG TAB PO SCH (20:17)
[2020-10-24] MEDS: ceFAZolin 2000MG 2,000 MG/15 ML SYR IV SCH (03:34)
[2020-10-24] MEDS: ACETAMINOPHEN 500 MG TAB PO SCH ×3 (05:27→20:19)
[2020-10-24 05:59] LABS: Basophils # (auto) 0.01 K/uL (0-0.2); Basophils % (auto) 0.2 %; Eosinophils # (auto) 0.14 K/uL (0-0.5); Eosinophils % (auto) 2.2 %; Hematocrit (blood only) 25.5 % (42-52); Hemoglobin 8.1 g/dL (14.0-18.0); Immature Granulocytes # (auto) 0.01 K/uL (0.00-0.02); Immature Granulocytes % (auto) 0.2 %; Lymphocytes # (auto) 1.81 K/uL (1.2-3.4); Lymphocytes % (auto) 27.8 %; Mean Corpuscular Hemoglobin 28.8 pg (25-34); Mean Corpuscular Hgb Conc 31.8 g/dL (32-36); Mean Corpuscular Volume 90.7 fL (80-100); Mean Platelet Volume 9.6 fL (7.4-10.4); Monocytes # (auto) 0.66 K/uL (0.11-0.59); Monocytes % (auto) 10.1 %; Neutrophils # (auto) 3.88 K/uL (1.4-6.5); Neutrophils % (auto) 59.5 %; Platelet Count 184 K/uL (130-400); RDW Coefficient of Variation 15.3 % (11.5-14.5); RDW Standard Deviation 51.2 fL (36.4-46.3); Red Blood Count 2.81 M/uL (4.7-6.1); White Blood Count 6.51 K/uL (4.8-10.8)
[2020-10-24 06:27] LABS: BUN Creatinine Ratio 21.5 (10-20); Calcium 8.2 mg/dl (8.5-10.1); Creatinine Clr Calc Pharmacy 67.2 ml/min; Est GFR (African American) 82.8 ml/min; Est GFR (Non-African American) 71.4 ml/min
[2020-10-24] MEDS: ENOXAPARIN INJ 40 MG/0.4 ML SYR SQ SCH (07:11)
[2020-10-24] MEDS: DOCUSATE SODIUM 100 MG CAP PO SCH ×2 (07:12→20:20)
[2020-10-24] MEDS: PANTOprazole 40 MG TAB PO SCH ×2 (07:12→20:19)
[2020-10-24] MEDS: DULoxetine HCL 20 MG CAP PO SCH (07:13)
[2020-10-24] MEDS: lisinopril 20 MG TAB PO SCH ×2 (07:13→20:20)
[2020-10-24] MEDS: MULTIVITAMIN TAB PO SCH (07:16)
[2020-10-24] MEDS ORDERED: VANCOMYCIN CONSULT ACTIVE PRN (07:59)
--- NOTE | 2020-10-24 08:01 | Orthopedic Progress Note ---
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 Will continue on vancomycin and consult with ID for further recommendations/treatments. -am labs - as above, hgb 8.1 -DC planning POD#1 -ancef/vanco x 24 -DVT ppx: SCDs, TEDs, Lovenox daily -WBAT RLE -PT/OT -PO XR demonstrates well aligned well fixed prothesis without fracture/dislocation -f/u IA cultures, GS negative. -am labs - as above, hgb 8.6 -DC planning Admission and Anticipated Discharge Date Admission Date: October 22, 2020 Subjective Post Operative Progress Note Patient seen sittingin chair at bedside, comfortable, denies complaints, pain well controlled, no acute issues. Denies F/C/N/V/SOB/CP. Participated well with PT yesterday. Review of Systems Review of Systems: All systems reviewed & are unremarkable except as noted in HPI & below Constitutional: as per Subjective / HPI Physical Exam Physical Exam: RLE NVSI +EHL/FHL/TA/GS SILT grossly, +2 DP pulse, compartments soft NT, dressing cdi. Constitutional: WD/WN, vitals as above Results & Data ([facility]) Vital Signs (Past 12 Hours) Vital Signs Temp Pulse Resp BP BP Pulse Ox 10/24/20 06:51 37.6 C H 63 18 136/66 96 10/23/20 22:28 37.0 C 56 L 16 125/48 L 95 10/23/20 20:06 60 101/57 L Laboratory Results 10/24/20 10/24/20 10/24/20 Range/Units 06:42 05:22 05:22 WBC 6.51 (4.8-10.8) K/uL RBC 2.81 L (4.7-6.1) M/uL Hgb 8.1 L (14.0-18.0) g/dL Hct 25.5 L (42-52) % MCV 90.7 (80-100) fL MCH 28.8 (25-34) pg MCHC 31.8 L (32-36) g/dL RDW Std Deviation 51.2 H (36.4-46.3) fL RDW Coeff of Rock 15.3 H (11.5-14.5) % Plt Count 184 (130-400) K/uL MPV 9.6 (7.4-10.4) fL Immature Gran % (Auto) 0.2 % Neut % (Auto) 59.5 % Lymph % (Auto) 27.8 % Finney % (Auto) 10.1 % Eos % (Auto) 2.2 % Baso % (Auto) 0.2 % Neut # (Auto) 3.88 (1.4-6.5) K/uL Lymph # (Auto) 1.81 (1.2-3.4) K/uL Finney # (Auto) 0.66 H (0.11-0.59) K/uL Eos # (Auto) 0.14 (0-0.5) K/uL Baso # (Auto) 0.01 (0-0.2) K/uL Immature Gran # (Auto) 0.01 (0.00-0.02) K/uL Sodium 140 (136-145) mmol/L Potassium 4.0 (3.5-5.1) mmol/L Chloride 108 H (98-107) mmol/L Carbon Dioxide 32 (21-32) mmol/L Anion Gap 0 L (3-11) BUN 22 H (7-18) mg/dl Creatinine 1.01 (0.6-1.4) mg/dl Est Cr Clr Drug Dosing 67.2 ml/min Est GFR ( Amer) 82.8 ml/min Est GFR (Non-Af Amer) 71.4 ml/min BUN/Creatinine Ratio 21.5 H (10-20) Glucose 140 H (70-99) mg/dl POC Glucose 141 H (70-99) mg/dl Calcium 8.2 L (8.5-10.1) mg/dl 10/23/20 10/23/20 10/23/20 Range/Units 20:44 17:35 12:29 WBC (4.8-10.8) K/uL RBC (4.7-6.1) M/uL Hgb (14.0-18.0) g/dL Hct (42-52) % MCV (80-100) fL MCH (25-34) pg MCHC (32-36) g/dL RDW Std Deviation (36.4-46.3) fL RDW Coeff of Rock (11.5-14.5) % Plt Count (130-400) K/uL MPV (7.4-10.4) fL Immature Gran % (Auto) % Neut % (Auto) % Lymph % (Auto) % Finney % (Auto) % Eos % (Auto) % Baso % (Auto) % Neut # (Auto) (1.4-6.5) K/uL Lymph # (Auto) (1.2-3.4) K/uL Finney # (Auto) (0.11-0.59) K/uL Eos # (Auto) (0-0.5) K/uL Baso # (Auto) (0-0.2) K/uL Immature Gran # (Auto) (0.00-0.02) K/uL Sodium (136-145) mmol/L Potassium (3.5-5.1) mmol/L Chloride (98-107) mmol/L Carbon Dioxide (21-32) mmol/L Anion Gap (3-11) BUN (7-18) mg/dl Creatinine (0.6-1.4) mg/dl Est Cr Clr Drug Dosing ml/min Est GFR ( Amer) ml/min Est GFR (Non-Af Amer) ml/min BUN/Creatinine Ratio (10-20) Glucose (70-99) mg/dl POC Glucose 153 H 152 H 142 H (70-99) mg/dl Calcium (8.5-10.1) mg/dl 10/23/20 Range/Units 08:46 WBC (4.8-10.8) K/uL RBC (4.7-6.1) M/uL Hgb (14.0-18.0) g/dL Hct (42-52) % MCV (80-100) fL MCH (25-34) pg MCHC (32-36) g/dL RDW Std Deviation (36.4-46.3) fL RDW Coeff of Rock (11.5-14.5) % Plt Count (130-400) K/uL MPV (7.4-10.4) fL Immature Gran % (Auto) % Neut % (Auto) % Lymph % (Auto) % Finney % (Auto) % Eos % (Auto) % Baso % (Auto) % Neut # (Auto) (1.4-6.5) K/uL Lymph # (Auto) (1.2-3.4) K/uL Finney # (Auto) (0.11-0.59) K/uL Eos # (Auto) (0-0.5) K/uL Baso # (Auto) (0-0.2) K/uL Immature Gran # (Auto) (0.00-0.02) K/uL Sodium (136-145) mmol/L Potassium (3.5-5.1) mmol/L Chloride (98-107) mmol/L Carbon Dioxide (21-32) mmol/L Anion Gap (3-11) BUN (7-18) mg/dl Creatinine (0.6-1.4) mg/dl Est Cr Clr Drug Dosing ml/min Est GFR ( Amer) ml/min Est GFR (Non-Af Amer) ml/min BUN/Creatinine Ratio (10-20) Glucose (70-99) mg/dl POC Glucose 152 H (70-99) mg/dl Calcium (8.5-10.1) mg/dl
[2020-10-24] MEDS: INSULIN ASPART 100 UNITS/ML 3 ML PEN SC SCH ×4 (08:38→20:31)
[2020-10-24] MEDS ORDERED: VANCOMYCIN HCL 1,500 MG in SODIUM CHLORIDE 0.9% 500 ML IV ONE (10:15)
--- NOTE | 2020-10-24 11:10 | Pharmacy Report ---
Pharmacy Abx Initial Consult - Date of Service October 24, 2020 - Pharmacy Dosing Scope Date of Consult: 10/24/20 Consultation requested by: Dr. Butler Pharmacy is consulted to initiate Vancomycin IV dosing therapy, order appropriate labs and adjust drug dose/frequency. - Subjective The patient is a 75 year old M admitted on 10/22/20 15:04. - Objective Height: 6 ft Weight: 87.5 kg Vital Signs (Past 12hrs): Vital Signs Temp Pulse Resp BP Pulse Ox 10/24/20 06:51 37.6 C H 63 18 136/66 96 Lab Results (24hrs): Laboratory Tests (24 Hours) 10/24/20 10/24/20 10/24/20 09:12 05:22 05:22 WBC 6.51 Neut # (Auto) 3.88 Creatinine 1.01 Est Cr Clr Drug Dosing 67.2 Random Vancomycin 11.5 Micro Results: 10/22/20 13:05 Gram Stain - Final Hip,Right 10/22/20 13:00 Gram Stain - Final Hip,Right 10/22/20 12:55 Gram Stain - Final Hip,Right - Assessment & Plan Assessment/Plan * 75yo male initiated on IV Vancomycin for bone/joint infection. One of three hip cultures are growing rare GPC. * Pt was given Vancomycin 15mg/kg IV pre-op and continued 24 hrs post-op. Pt did not receive a loading dose. * Obtained a stat trough/random level prior to re-dosing vancomycin. * Trough level was slightly subtherapeutic at 11.5 mcg/ml. Figuring this is below goal range since steady state has not yet been achieved without sufficient loading dose. * Based on patient specific PK data from one time level today; T1/2 ~ 16 hrs and a dose of 1500mg (17mg/kg) IV Q18hrs should achieve an AUC of 534 and a trough level of 16.5 mcg/ml * Goal trough level for bone/joint : 15 to 20 mcg/mL * Repeat trough level on 10/26/20 @ 1530 Pharmacy will continue to follow and will adjust dose/frequency as necessary. Thank you.
[2020-10-24] MEDS: INSULIN GLARGINE SOLOSTAR 100 UNITS/ML 3 ML PEN SC SCH (18:14)
[2020-10-24] MEDS: SENNA 8.6 MG TAB PO SCH (20:18)
[2020-10-24] MEDS: ATORVASTATIN 10 MG TAB PO SCH (20:18)
[2020-10-25] MEDS: VANCOMYCIN HCL 1,500 MG in SODIUM CHLORIDE 0.9% 500 ML IV SCH ×2 (04:22→21:13)
[2020-10-25] MEDS: ACETAMINOPHEN 500 MG TAB PO SCH ×3 (05:29→20:55)
[2020-10-25 07:47] LABS: Basophils # (auto) 0.02 K/uL (0-0.2); Basophils % (auto) 0.3 %; Eosinophils # (auto) 0.25 K/uL (0-0.5); Eosinophils % (auto) 3.2 %; Hematocrit (blood only) 27.9 % (42-52); Hemoglobin 9.1 g/dL (14.0-18.0); Immature Granulocytes # (auto) 0.02 K/uL (0.00-0.02); Immature Granulocytes % (auto) 0.3 %; Lymphocytes # (auto) 2.03 K/uL (1.2-3.4); Mean Corpuscular Hemoglobin 29.1 pg (25-34); Mean Corpuscular Hgb Conc 32.6 g/dL (32-36); Mean Corpuscular Volume 89.1 fL (80-100); Mean Platelet Volume 9.7 fL (7.4-10.4); Monocytes # (auto) 0.82 K/uL (0.11-0.59); Monocytes % (auto) 10.5 %; Neutrophils # (auto) 4.68 K/uL (1.4-6.5); Neutrophils % (auto) 59.7 %; Platelet Count 226 K/uL (130-400); RDW Coefficient of Variation 15.4 % (11.5-14.5); RDW Standard Deviation 50.1 fL (36.4-46.3); Red Blood Count 3.13 M/uL (4.7-6.1); White Blood Count 7.82 K/uL (4.8-10.8)
[2020-10-25 08:11] LABS: BUN Creatinine Ratio 18.8 (10-20); Calcium 8.4 mg/dl (8.5-10.1); Creatinine Clr Calc Pharmacy 70.7 ml/min; Est GFR (Non-African American) 75.9 ml/min; Potassium 4.2 mmol/L (3.5-5.1)
[2020-10-25] MEDS: lisinopril 20 MG TAB PO SCH ×2 (08:52→20:55)
[2020-10-25] MEDS: ENOXAPARIN INJ 40 MG/0.4 ML SYR SQ SCH (08:53)
[2020-10-25] MEDS: DOCUSATE SODIUM 100 MG CAP PO SCH ×2 (08:53→20:54)
[2020-10-25] MEDS: MULTIVITAMIN TAB PO SCH (08:53)
[2020-10-25] MEDS: DULoxetine HCL 20 MG CAP PO SCH (08:53)
[2020-10-25] MEDS: PANTOprazole 40 MG TAB PO SCH ×2 (08:53→20:54)
[2020-10-25] MEDS: INSULIN ASPART 100 UNITS/ML 3 ML PEN SC SCH ×4 (08:54→21:51)
--- NOTE | 2020-10-25 09:14 | Pharmacy Report ---
Pharmacy Glycemic Short Note 2 - Date of Service October 25, 2020 - Glycemic Short BSG Results (Last 24 hours): 10/24/20 10/24/20 10/24/20 12:24 17:11 20:30 Glucose POC Glucose 142 H 156 H 153 H 10/25/20 10/25/20 06:38 08:48 Glucose 132 H POC Glucose 146 H OUTPATIENT ANTIDIABETIC REGIMEN: * Glipizide 5mg PO Qam + 2.5mg pm * Metformin 1,500 mg PO QDD * A1c = 7.6% on 10/10/20 ASSESSMENT: 10/25 * Pt has received 34 units of insulin over the past 24hrs * 17 units of basal with Lantus * 17 units of bolus with NovoLog * BSGs [phone] mg/dl * AM fasting BSG is above goal range (<140) at 146. Will increase basal insulin * Post-prandials are in range; however most BSgs >150. Goal is to maintain BSGs <180 (ideally <150) to prevent post-op infectious compilations. Will tighten CR 10/23 * 75 yo T2DM male with adequate outpatient control per recent A1c * Pt is maintained on oral antidiabetic agents as an outpatient * Oral agents are not recommended for inpatient use d/t drug interactions, changing PO intake, and difficulty titrating for acute hyper/hypoglycemia. ADA recommends re-initiating outpatient oral agents 1-2 days prior to discharge if/when appropriate if they were held on admission. * Will hold oral agents for admission and utilize SQ basal bolus insulin regimen which is the recommended regimen for inpatient glycemic control. * Will initiate weight based insulin dosing for insulin jade patient and titrate based on BSG trends. * Slightly stress Lantus dose on POD#0 since dexamethasone given topically in OR PLAN FOR INPATIENT GLYCEMIC CONTROL: * Hold outpatient oral diabetes medications * Basal insulin * Lantus 20 units SQ daily at dinner * Bolus insulin * NovoLog per scale ACHS or Q6hrs while NPO * Goal Range: Low 110 mg/dL - High 140 mg/dL * Correction Factor: 25 mg/dL/unit * Nutritional / Prandial insulin per carb ratio of 1 unit per 8 grams CHO consumed PLAN FOR DISCHARGE: * A1c is in goal range for age/co-morbidities. No changes needed to outpatient regimen.
--- NOTE | 2020-10-25 15:34 | Orthopedic Progress Note ---
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 WBAT DVT prophylaxis - Lovenox, SCD's Pain management as written Recs per ID Team noted in chart. Very good chance that pt will need treated for 6 weeks IV antibx. Waiting on final cx. Spoke with CM. PT's HH will not be able to start seeing him until Wednesday if IV antibx needed. Admission and Anticipated Discharge Date Admission Date: October 25, 2020 Subjective POD 3 Pt sitting in chair at bedside. States he has normal surgical pain with the incision site but otherwise is doing well. Pain controlled currently. No new complaints. States he had Zoom mtg with ID team today. Physical Exam Physical Exam: Dressings C/D/I. Calves soft,N/T. NV intact. Toes mobile. Hip appears located. Results & Data ([facility]) Vital Signs (Past 12 Hours) Vital Signs Temp Pulse Resp BP Pulse Ox 10/25/20 07:40 37 C 64 18 117/62 98
[2020-10-25] MEDS ORDERED: INSULIN GLARGINE SOLOSTAR 100 UNITS/ML 3 ML PEN SC SCH (16:30)
[2020-10-25] MEDS: ATORVASTATIN 10 MG TAB PO SCH (20:54)
[2020-10-25] MEDS: SENNA 8.6 MG TAB PO SCH (20:55)
[2020-10-26] MEDS: ACETAMINOPHEN 500 MG TAB PO SCH ×3 (06:13→20:57)
[2020-10-26 06:23] LABS: Basophils # (auto) 0.02 K/uL (0-0.2); Basophils % (auto) 0.3 %; Hematocrit (blood only) 27.3 % (42-52); Hemoglobin 8.7 g/dL (14.0-18.0); Immature Granulocytes # (auto) 0.01 K/uL (0.00-0.02); Immature Granulocytes % (auto) 0.2 %; Lymphocytes # (auto) 1.43 K/uL (1.2-3.4); Lymphocytes % (auto) 23.4 %; Mean Corpuscular Hemoglobin 28.7 pg (25-34); Mean Corpuscular Hgb Conc 31.9 g/dL (32-36); Mean Corpuscular Volume 90.1 fL (80-100); Mean Platelet Volume 9.5 fL (7.4-10.4); Monocytes # (auto) 0.54 K/uL (0.11-0.59); Monocytes % (auto) 8.9 %; Neutrophils % (auto) 67.2 %; Platelet Count 221 K/uL (130-400); RDW Coefficient of Variation 15.2 % (11.5-14.5); RDW Standard Deviation 50.2 fL (36.4-46.3); Red Blood Count 3.03 M/uL (4.7-6.1)
[2020-10-26 06:51] LABS: C Reactive Protein 3.91 mg/dl (0-0.29); Calcium 8.8 mg/dl (8.5-10.1); Creatinine Clr Calc Pharmacy 76.3 ml/min; Est GFR (African American) 95.6 ml/min; Est GFR (Non-African American) 82.5 ml/min; Potassium 3.8 mmol/L (3.5-5.1)
--- NOTE | 2020-10-26 07:50 | Orthopedic Progress Note ---
Date of Service October 26, 2020 Assessment & Plan (1) Failed total hip arthroplasty: POD 4 s/p revision R anterior YENNY, head and liner PT/OT protocols. WBAT DVT prophylaxis - Lovenox, SCD's Pain management as written Recs per ID Team noted in chart. Very good chance that pt will need treated for 6 weeks IV antibx. Waiting on final cx. PT's HH will not be able to start seeing him until Wednesday if IV antibx needed. Continue to follow cultures Admission and Anticipated Discharge Date Admission Date: October 25, 2020 Supervising Physician Co-Signing Physician Notes Patient seen and examined, agree with above assessment and plan. Revision R anterior YENNY, PJI POD#4 -Vancomycin -Lovenox -WBAT RLE -PT/OT -am labs as above, hgb 8.7 -IA GS gram + cocci, culture #2 + staph species, sensitivities pending. ID recs appreciated, 6 weeks IV abx followed by 3 months PO abx. Discussed with patient today follow up appointment with [place] post-operatively. Subjective POD 4 Pt sitting in chair at bedside. States he has normal surgical pain with the incision site but otherwise is doing well. Pain controlled currently. No new complaints. He is in good spirits. Review of Systems Constitutional: as per Subjective / HPI Physical Exam Physical Exam: JUD to right hip is c/d/i. No surrounding erythema, mild ecch ymosis. No calf tenderness, calves are soft. Distally n/v status and sensation intact. Results & Data ([facility]) Vital Signs (Past 12 Hours) Vital Signs Temp Pulse Resp BP Pulse Ox 10/25/20 22:46 36.8 C 55 L 16 134/63 98
[2020-10-26] MEDS: INSULIN ASPART 100 UNITS/ML 3 ML PEN SC SCH ×4 (08:58→20:57)
[2020-10-26] MEDS: DULoxetine HCL 20 MG CAP PO SCH (09:03)
[2020-10-26] MEDS: DOCUSATE SODIUM 100 MG CAP PO SCH ×2 (09:03→20:56)
[2020-10-26] MEDS: lisinopril 20 MG TAB PO SCH ×2 (09:03→20:57)
[2020-10-26] MEDS: ENOXAPARIN INJ 40 MG/0.4 ML SYR SQ SCH (09:06)
[2020-10-26] MEDS: MULTIVITAMIN TAB PO SCH (09:06)
[2020-10-26] MEDS: PANTOprazole 40 MG TAB PO SCH ×2 (09:06→20:57)
--- NOTE | 2020-10-26 13:02 | Pharmacy Report ---
Pharmacy Glycemic Short Note 2 - Date of Service October 26, 2020 - Glycemic Short BSG Results (Last 24 hours): 10/25/20 10/25/20 10/26/20 17:14 20:47 05:59 Glucose 148 H POC Glucose 160 H 152 H 10/26/20 10/26/20 08:17 12:07 Glucose POC Glucose 152 H 143 H OUTPATIENT ANTIDIABETIC REGIMEN: * Glipizide 5mg PO Qam + 2.5mg pm * Metformin 1,500 mg PO QDD * A1c = 7.6% on 10/10/20 ASSESSMENT: 10/26/20 Pt has received 38 units of insulin over the past 24hrs * 20 units of basal with Lantus * 18 units of bolus with NovoLog * BSGs [phone] mg/dl * AM fasting BSG is above goal range (<140) at 146. Will increase basal insulin * Post-prandials are NOT IN range; most BSgs >150. Goal is to maintain BSGs <180 (ideally <150) to prevent post-op infectious compilations. Will tighten CR 10/25 * Pt has received 34 units of insulin over the past 24hrs * 17 units of basal with Lantus * 17 units of bolus with NovoLog * BSGs [phone] mg/dl * AM fasting BSG is above goal range (<140) at 146. Will increase basal insulin * Post-prandials are in range; however most BSgs >150. Goal is to maintain BSGs <180 (ideally <150) to prevent post-op infectious compilations. Will tighten CR 10/23 * 75 yo T2DM male with adequate outpatient control per recent A1c * Pt is maintained on oral antidiabetic agents as an outpatient * Oral agents are not recommended for inpatient use d/t drug interactions, changing PO intake, and difficulty titrating for acute hyper/hypoglycemia. ADA recommends re-initiating outpatient oral agents 1-2 days prior to discharge if/when appropriate if they were held on admission. * Will hold oral agents for admission and utilize SQ basal bolus insulin regimen which is the recommended regimen for inpatient glycemic control. * Will initiate weight based insulin dosing for insulin jade patient and titrate based on BSG trends. * Slightly stress Lantus dose on POD#0 since dexamethasone given topically in OR PLAN FOR INPATIENT GLYCEMIC CONTROL: * Hold outpatient oral diabetes medications * Basal insulin * Lantus 25 units SQ daily at dinner * Bolus insulin * NovoLog per scale ACHS or Q6hrs while NPO * Goal Range: Low 110 mg/dL - High 140 mg/dL * Correction Factor: 25 mg/dL/unit * Nutritional / Prandial insulin per carb ratio of 1 unit per 8 grams CHO consumed PLAN FOR DISCHARGE: * A1c is in goal range for age/co-morbidities. No changes needed to outpatient regimen.
[2020-10-26] MEDS ORDERED: VANCOMYCIN TROUGH ONE (15:30)
[2020-10-26] MEDS: VANCOMYCIN HCL 1,250 MG in SODIUM CHLORIDE 0.9% 250 ML IV SCH (17:06)
[2020-10-26] MEDS: INSULIN GLARGINE SOLOSTAR 100 UNITS/ML 3 ML PEN SC SCH (18:05)
[2020-10-26] MEDS: VANCOMYCIN HCL 1,500 MG in SODIUM CHLORIDE 0.9% 500 ML IV SCH (19:38)
[2020-10-26] MEDS: ATORVASTATIN 10 MG TAB PO SCH (20:55)
[2020-10-26] MEDS: SENNA 8.6 MG TAB PO SCH (20:55)
[2020-10-27] MEDS: VANCOMYCIN HCL 1,250 MG in SODIUM CHLORIDE 0.9% 250 ML IV SCH ×2 (05:19→17:07)
[2020-10-27] MEDS: ACETAMINOPHEN 500 MG TAB PO SCH ×3 (05:19→21:05)
[2020-10-27 06:03] LABS: Basophils # (auto) 0.02 K/uL (0-0.2); Basophils % (auto) 0.4 %; Eosinophils # (auto) 0.22 K/uL (0-0.5); Eosinophils % (auto) 4.1 %; Hematocrit (blood only) 27.3 % (42-52); Hemoglobin 8.9 g/dL (14.0-18.0); Immature Granulocytes # (auto) 0.01 K/uL (0.00-0.02); Immature Granulocytes % (auto) 0.2 %; Lymphocytes # (auto) 1.43 K/uL (1.2-3.4); Lymphocytes % (auto) 26.9 %; Mean Corpuscular Hemoglobin 28.9 pg (25-34); Mean Corpuscular Hgb Conc 32.6 g/dL (32-36); Mean Corpuscular Volume 88.6 fL (80-100); Mean Platelet Volume 9.3 fL (7.4-10.4); Monocytes # (auto) 0.53 K/uL (0.11-0.59); Neutrophils # (auto) 3.11 K/uL (1.4-6.5); Neutrophils % (auto) 58.4 %; Platelet Count 217 K/uL (130-400); RDW Coefficient of Variation 15.2 % (11.5-14.5); RDW Standard Deviation 49.2 fL (36.4-46.3); Red Blood Count 3.08 M/uL (4.7-6.1); White Blood Count 5.32 K/uL (4.8-10.8)
[2020-10-27 06:31] LABS: C Reactive Protein 2.56 mg/dl (0-0.29); Calcium 8.6 mg/dl (8.5-10.1); Est GFR (African American) 96.9 ml/min; Est GFR (Non-African American) 83.6 ml/min; Potassium 3.9 mmol/L (3.5-5.1)
--- NOTE | 2020-10-27 08:20 | Orthopedic Progress Note ---
Date of Service October 27, 2020 Assessment & Plan (1) Failed total hip arthroplasty: POD 5 s/p revision R anterior YENNY, head and liner PT/OT protocols. WBAT DVT prophylaxis - Lovenox, SCD's Pain management as written Recs per ID Team noted in chart. Very good chance that pt will need treated for 6 weeks IV antibx. Waiting on final cx. PT's HH will not be able to start seeing him until Wednesday if IV antibx needed. Continue to follow cultures. Culture #2 growing Coag neg staph not lugdunensis resistant to erythromycin, culture #1 with no growth, gram stain with gram + cocci. Admission and Anticipated Discharge Date Admission Date: October 25, 2020 Supervising Physician Co-Signing Physician Notes Patient seen and examined agree with above assessment and plan. Per ID recommendations we are identifying bacteria on multiple cultures therefore we will continue with 6 weeks course of IV antibiotics likely daptomycin, followed by oral antibiotics for an additional 3 months of suppression. Discussed with patient follow-up with ID doctor in [place], Dr. Galvez in 1 to 2 weeks, as long as IV antibiotics and home health can be arranged plan on discharge 10/28/2020. Patient in good spirits and agreeable with plan all questions were answered to satisfaction. Subjective POD 5 Pt resting in bed comfortably. States he has normal surgical pain with the incision site but otherwise is doing well. Pain controlled currently. No new complaints. He is in better spirits today. Planning to get up and walk a little today. Denies chest pain, sob, dizziness, n/v/d, fever, chills Review of Systems Review of Systems: All systems reviewed & are unremarkable except as noted in Subjective Constitutional: as per Subjective / HPI Physical Exam Physical Exam: JUD to right hip is c/d/i. No surrounding erythema, mild ecchymosis. No calf tenderness, calves are soft. Distally n/v status and sensation intact. Results & Data ([facility]) Vital Signs (Past 12 Hours) Vital Signs Temp Pulse Resp BP Pulse Ox 10/27/20 07:36 36.6 C 49 L 18 158/71 H 96 10/26/20 22:32 36.7 C 53 L 12 131/62 97
[2020-10-27] MEDS: INSULIN ASPART 100 UNITS/ML 3 ML PEN SC SCH ×4 (08:48→20:56)
[2020-10-27] MEDS: MULTIVITAMIN TAB PO SCH (08:51)
[2020-10-27] MEDS: DOCUSATE SODIUM 100 MG CAP PO SCH ×2 (08:52→21:05)
[2020-10-27] MEDS: PANTOprazole 40 MG TAB PO SCH ×2 (08:52→21:05)
[2020-10-27] MEDS: lisinopril 20 MG TAB PO SCH ×2 (08:52→21:05)
[2020-10-27] MEDS: ENOXAPARIN INJ 40 MG/0.4 ML SYR SQ SCH (08:53)
[2020-10-27] MEDS: DULoxetine HCL 20 MG CAP PO SCH (08:53)
[2020-10-27] MEDS: INSULIN GLARGINE SOLOSTAR 100 UNITS/ML 3 ML PEN SC SCH (17:50)
[2020-10-27] MEDS: SENNA 8.6 MG TAB PO SCH (21:05)
[2020-10-27] MEDS: ATORVASTATIN 10 MG TAB PO SCH (21:05)
[2020-10-28] MEDS ORDERED: VANCOMYCIN TROUGH ONE (04:30)
[2020-10-28 04:38] LABS: Basophils # (auto) 0.02 K/uL (0-0.2); Basophils % (auto) 0.4 %; Eosinophils # (auto) 0.21 K/uL (0-0.5); Eosinophils % (auto) 3.9 %; Hematocrit (blood only) 26.5 % (42-52); Hemoglobin 8.7 g/dL (14.0-18.0); Immature Granulocytes # (auto) 0.01 K/uL (0.00-0.02); Immature Granulocytes % (auto) 0.2 %; Lymphocytes # (auto) 1.42 K/uL (1.2-3.4); Lymphocytes % (auto) 26.4 %; Mean Corpuscular Hemoglobin 29.7 pg (25-34); Mean Corpuscular Hgb Conc 32.8 g/dL (32-36); Mean Corpuscular Volume 90.4 fL (80-100); Mean Platelet Volume 9.4 fL (7.4-10.4); Monocytes # (auto) 0.53 K/uL (0.11-0.59); Monocytes % (auto) 9.9 %; Neutrophils # (auto) 3.18 K/uL (1.4-6.5); Neutrophils % (auto) 59.2 %; Platelet Count 209 K/uL (130-400); RDW Coefficient of Variation 15.3 % (11.5-14.5); RDW Standard Deviation 50.9 fL (36.4-46.3); Red Blood Count 2.93 M/uL (4.7-6.1); White Blood Count 5.37 K/uL (4.8-10.8)
[2020-10-28 04:55] LABS: BUN Creatinine Ratio 22.7 (10-20); Calcium 8.5 mg/dl (8.5-10.1); Creatinine Clr Calc Pharmacy 71.5 ml/min; Est GFR (African American) 89.1 ml/min; Est GFR (Non-African American) 76.9 ml/min; Potassium 3.9 mmol/L (3.5-5.1)
[2020-10-28 04:56] LABS: C Reactive Protein 2.13 mg/dl (0-0.29)
[2020-10-28] MEDS: VANCOMYCIN HCL 1,250 MG in SODIUM CHLORIDE 0.9% 250 ML IV SCH (05:40)
[2020-10-28] MEDS: ACETAMINOPHEN 500 MG TAB PO SCH ×2 (05:40→13:43)
--- NOTE | 2020-10-28 07:13 | Orthopedic Progress Note ---
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 WBAT DVT prophylaxis - Lovenox, SCD's Pain management as written Intraoperative cultures positive for coag negative staph and gram-positive bacilli. Will need 6 weeks of IV antibiotics followed by 3 months of oral antibiotics per infectious disease recommendations. We will arrange for follow- up with Dr. Galvez at [facility]. PICC line ordered Admission and Anticipated Discharge Date Admission Date: October 25, 2020 Subjective Post Operative Progress Note Patient seen sitting up in bed, comfortable, denies complaints, pain well controlled, no acute issues. Denies F/C/N/V/SOB/CP. Patient ambulating well. Review of Systems Review of Systems: All systems reviewed & are unremarkable except as noted in HPI & below Constitutional: as per Subjective / HPI Physical Exam Physical Exam: RLE NVSI +EHL/FHL/TA/GS SILT grossly, +2 DP pulse, compartments soft NT, dressing cdi. Constitutional: WD/WN, vitals as above Results & Data ([facility]) Vital Signs (Past 12 Hours) Vital Signs Temp Pulse Resp BP BP Pulse Ox 10/27/20 22:32 36.7 C 54 L 16 135/71 97 10/27/20 21:04 51 L 18 156/72 H 96 Laboratory Results 10/28/20 10/28/20 10/28/20 Range/Units 04:32 04:32 04:32 WBC (4.8-10.8) K/uL RBC (4.7-6.1) M/uL Hgb (14.0-18.0) g/dL Hct (42-52) % MCV (80-100) fL MCH (25-34) pg MCHC (32-36) g/dL RDW Std Deviation (36.4-46.3) fL RDW Coeff of Rock (11.5-14.5) % Plt Count (130-400) K/uL MPV (7.4-10.4) fL Immature Gran % (Auto) % Neut % (Auto) % Lymph % (Auto) % Kane % (Auto) % Eos % (Auto) % Baso % (Auto) % Neut # (Auto) (1.4-6.5) K/uL Lymph # (Auto) (1.2-3.4) K/uL Kane # (Auto) (0.11-0.59) K/uL Eos # (Auto) (0-0.5) K/uL Baso # (Auto) (0-0.2) K/uL Immature Gran # (Auto) (0.00-0.02) K/uL ESR 81 H (0-20) mm/hr Sodium 142 (136-145) mmol/L Potassium 3.9 (3.5-5.1) mmol/L Chloride 109 H (98-107) mmol/L Carbon Dioxide 31 (21-32) mmol/L Anion Gap 2.0 L (3-11) BUN 22 H (7-18) mg/dl Creatinine 0.95 (0.6-1.4) mg/dl Est Cr Clr Drug Dosing 71.5 ml/min Est GFR ( Amer) 89.1 ml/min Est GFR (Non-Af Amer) 76.9 ml/min BUN/Creatinine Ratio 22.7 H (10-20) Glucose 113 H (70-99) mg/dl POC Glucose (70-99) mg/dl Calcium 8.5 (8.5-10.1) mg/dl C-Reactive Protein 2.13 H (0-0.29) mg/dl Vancomycin Trough 14.0 (See Comment) mcg/ml 10/28/20 10/27/20 10/27/20 Range/Units 04:32 20:44 16:45 WBC 5.37 (4.8-10.8) K/uL RBC 2.93 L (4.7-6.1) M/uL Hgb 8.7 L (14.0-18.0) g/dL Hct 26.5 L (42-52) % MCV 90.4 (80-100) fL MCH 29.7 (25-34) pg MCHC 32.8 (32-36) g/dL RDW Std Deviation 50.9 H (36.4-46.3) fL RDW Coeff of Rock 15.3 H (11.5-14.5) % Plt Count 209 (130-400) K/uL MPV 9.4 (7.4-10.4) fL Immature Gran % (Auto) 0.2 % Neut % (Auto) 59.2 % Lymph % (Auto) 26.4 % Kane % (Auto) 9.9 % Eos % (Auto) 3.9 % Baso % (Auto) 0.4 % Neut # (Auto) 3.18 (1.4-6.5) K/uL Lymph # (Auto) 1.42 (1.2-3.4) K/uL Kane # (Auto) 0.53 (0.11-0.59) K/uL Eos # (Auto) 0.21 (0-0.5) K/uL Baso # (Auto) 0.02 (0-0.2) K/uL Immature Gran # (Auto) 0.01 (0.00-0.02) K/uL ESR (0-20) mm/hr Sodium (136-145) mmol/L Potassium (3.5-5.1) mmol/L Chloride (98-107) mmol/L Carbon Dioxide (21-32) mmol/L Anion Gap (3-11) BUN (7-18) mg/dl Creatinine (0.6-1.4) mg/dl Est Cr Clr Drug Dosing ml/min Est GFR ( Amer) ml/min Est GFR (Non-Af Amer) ml/min BUN/Creatinine Ratio (10-20) Glucose (70-99) mg/dl POC Glucose 134 H 143 H (70-99) mg/dl Calcium (8.5-10.1) mg/dl C-Reactive Protein (0-0.29) mg/dl Vancomycin Trough (See Comment) mcg/ml 10/27/20 10/27/20 Range/Units 12:10 08:28 WBC (4.8-10.8) K/uL RBC (4.7-6.1) M/uL Hgb (14.0-18.0) g/dL Hct (42-52) % MCV (80-100) fL MCH (25-34) pg MCHC (32-36) g/dL RDW Std Deviation (36.4-46.3) fL RDW Coeff of Rock (11.5-14.5) % Plt Count (130-400) K/uL MPV (7.4-10.4) fL Immature Gran % (Auto) % Neut % (Auto) % Lymph % (Auto) % Kane % (Auto) % Eos % (Auto) % Baso % (Auto) % Neut # (Auto) (1.4-6.5) K/uL Lymph # (Auto) (1.2-3.4) K/uL Kane # (Auto) (0.11-0.59) K/uL Eos # (Auto) (0-0.5) K/uL Baso # (Auto) (0-0.2) K/uL Immature Gran # (Auto) (0.00-0.02) K/uL ESR (0-20) mm/hr Sodium (136-145) mmol/L Potassium (3.5-5.1) mmol/L Chloride (98-107) mmol/L Carbon Dioxide (21-32) mmol/L Anion Gap (3-11) BUN (7-18) mg/dl Creatinine (0.6-1.4) mg/dl Est Cr Clr Drug Dosing ml/min Est GFR ( Amer) ml/min Est GFR (Non-Af Amer) ml/min BUN/Creatinine Ratio (10-20) Glucose (70-99) mg/dl POC Glucose 129 H 126 H (70-99) mg/dl Calcium (8.5-10.1) mg/dl C-Reactive Protein (0-0.29) mg/dl Vancomycin Trough (See Comment) mcg/ml
[2020-10-28] MEDS ORDERED: DAPTOmycin 475 MG in SYRINGE 0 ML IV SCH (08:00)
[2020-10-28] MEDS: MULTIVITAMIN TAB PO SCH (08:25)
[2020-10-28] MEDS: PANTOprazole 40 MG TAB PO SCH (08:25)
[2020-10-28] MEDS: DOCUSATE SODIUM 100 MG CAP PO SCH (08:25)
[2020-10-28] MEDS: lisinopril 20 MG TAB PO SCH (08:25)
[2020-10-28] MEDS: DULoxetine HCL 20 MG CAP PO SCH (08:25)
[2020-10-28] MEDS: INSULIN ASPART 100 UNITS/ML 3 ML PEN SC SCH ×2 (08:59→12:39)
[2020-10-28] MEDS: ENOXAPARIN INJ 40 MG/0.4 ML SYR SQ SCH (11:12)
--- NOTE | 2020-10-28 13:39 | Pharmacy Report ---
Pharmacy Vanc AUC Short Note - Date of Service October 26, 2020 - Assessment & Plan Assessment 75 year old M receiving Vancomycin for treatment of osteomyelitis vs prosthetic joint infection. * Day #5 of antimicrobial therapy. * OR cultures growing Staph spp Plan Vancomycin * AUC/DEB is the preferred PK/PD target for vancomycin * AUC guided dosing is effective and associated with decreased risk of nephrotoxicity compared to traditional trough targets * Trough level of 8.7 mcg/mL is subtherapeutic * Change to 1250 mg IV every 12 hours * This regimen is predicted to achieve a steady-state trough of 13.1 mg/L and AUC/DEB of 481 mg/L.hr with an 8% risk of nephrotoxicity * Trough level ordered for: 10/28/20 prior to 0500 dose Pharmacy will continue to follow and will adjust dose/frequency as necessary. Thank you.
--- NOTE | 2020-10-29 09:56 | Discharge Summary ---
Date of Service October 29, 2020 Admission HPI Per Admitting Provider The patient is a 75 year old male who presents with complaints of painful right total hip replacement. The patient has failed outpatient conservative treatments to this point which included NSAIDs, activity modification, PT and home exercise program. The patient's pain and limited function have progressed to the point where they severely hinder their activities of daily living and they no longer tolerate exercise programs. They are requesting to proceed with revision total hip replacement surgery. Principal Diagnosis Revision Right anterior total hip replacement, I+D, head and liner exchange. Discharge Exam RLE NVSI +EHL/FHL/TA/GS SILT grossly, +2 DP pulse, compartments soft NT, dressing cdi. Constitutional WD/WN, vitals as above Discharge Data Allergies Allergy/AdvReac Type Severity Reaction Status Date / Time No Known Allergies Allergy Verified 10/22/20 09:40 Consultations 10/23/20 17:15 Consult Infectious Diseases Routine Procedures Performed Operation Date: 10/22/20 11:25 Actual Procedures p Right Anterior Total Hip Arthroplasty Revision; Head and Liner Exchange(Right) - Sadi Butler DO Ordered Studies 10/22/20 FL hip RT 1V Routine Hospital Course (1) Failed total hip arthroplasty: Hospital Course: On 10/22/20 the patient was taken to the operating room, adequate anesthesia administered and underwent a revision total right anterior arthroplasty, I+D, head and liner exchange. The patient tolerated the procedure well and was taken to the PACU in stable condition. Post-operatively the patient was started on a DVT ppx medication and given appropriate IV antibiotics. Consults were placed to physical therapy, occupational therapy and case management. POD#1 -ancef/vanco x 24 -DVT ppx: SCDs, TEDs, Lovenox daily -WBAT RLE -PT/OT -PO XR demonstrates well aligned well fixed prothesis without fracture/dislocation -f/u IA cultures, GS negative. -am labs - as above, hgb 8.6 -DC planning POD#2 -ancef/vanco x 24 -DVT ppx: SCDs, TEDs, Lovenox daily -WBAT RLE -PT/OT -PO XR demonstrates well aligned well fixed prothesis without fracture/dislocation -f/u IA cultures - neg to date, GS #1 resulted rare gram + cocci. Will continue on vancomycin and consult with ID for further recommendations/treatments. -am labs - as above, hgb 8.1 -DC planning POD 3 s/p revision R anterior YENNY, head and liner PT/OT protocols. WBAT DVT prophylaxis - Lovenox, SCD's Pain management as written Recs per ID Team noted in chart. Very good chance that pt will need treated for 6 weeks IV antibx. Waiting on final cx. Spoke with CM. PT's HH will not be able to start seeing him until Wednesday if IV antibx needed. POD 4 s/p revision R anterior YENNY, head and liner PT/OT protocols. WBAT DVT prophylaxis - Lovenox, SCD's Pain management as written Recs per ID Team noted in chart. Very good chance that pt will need treated for 6 weeks IV antibx. Waiting on final cx. PT's HH will not be able to start seeing him until Wednesday if IV antibx needed. Continue to follow cultures POD 5 s/p revision R anterior YENNY, head and liner PT/OT protocols. WBAT DVT prophylaxis - Lovenox, SCD's Pain management as written Recs per ID Team noted in chart. Very good chance that pt will need treated for 6 weeks IV antibx. Waiting on final cx. PT's HH will not be able to start seeing him until Wednesday if IV antibx needed. Continue to follow cultures. Culture #2 growing Coag neg staph not lugdunensis resistant to erythromycin, culture #1 with no growth, gram stain with gram + cocci. POD#6 PT/OT protocols. WBAT DVT prophylaxis - Lovenox, SCD's Pain management as written Intraoperative cultures positive for coag negative staph and gram-positive bacilli. Will need 6 weeks of IV antibiotics followed by 3 months of oral antibiotics per infectious disease recommendations. We will arrange for follow- up with Dr. Galvez at [facility]. PICC line ordered The patients hospital stay was relatively uneventful and they were deemed stable by the orthopedic team and consultants to be discharged home with HH on 10/28/20. Discharge Instructions: Upon discharge the patient may weight bear as tolerates through their operative extremity. They were instructed to keep the incision clean and dry at all times. The patient may shower but should not submerge the incision, avoid bathi ng, pools and hot tubs. The patient was given a script for pain medication and should take as instructed. The patient was given a script for DVT ppx Lovenox 40mg daily and should take as directed. The patient was instructed to not drive or travel for long distances until cleared to do so. If the patient develops any symptoms of fevers, chills, nausea, vomiting, increased redness, swelling, pain or drainage from the surgical site, they should notify the office and/or proceed to the nearest emergency room. The patient should follow up in 10-14 days after surgery for their routine post-operative follow-up appointment and should call the office, to confirm the date and time. Patient also instructed to follow up with Infectious Disease, Dr. Galvez within 1-2 weeks post op. 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 Sexual Activity: Wait until after follow-up appointment Exercise/Sports: Wait until after follow-up appointment Driving/Machine Use: No driving. Weightbearing: Full weightbearing Non-emergency contact: Primary Care Provider and Surgeon Call non-emergency contact if: you have any medication questions, your symptoms worsen, your pain is not controlled, your pain is worsening, your pain is unusual for you, your pain is concerning for you, you have a fever, your temperature is above 101, your wound has increased redness, your wound has increased drainage and your wound pain has increased Follow-up/Referrals: Sadi Butler DO [Physician] - Kathy Rios M.D. [Primary Care Provider] - 11/04/20 10:30 am Fatoumata Galvez DO [Physician] - (Within 1 to 2 weeks postoperatively. PATIENT IS NOT KNOWN TO PROVIDER; ONCE THEY GET MEDICAL RECORDS AND INFECTIOUS DISEASE NOTES FROM [facility] THEY WILL CALL THE PATIENT AND SET UP AN APPT.) Diet: Carb Consistent or DM2 Addtl Attending Provider Instructions: ACTIVITY RECOMMENDATIONS: SELF CARE INSTRUCTIONS AFTER TOTAL HIP REPLACEMENT : Direct Anterior Approach Until the incision and soft tissues around your hip have healed, there is a possibility that the hip prosthesis could dislocate. A. Hip flexion ( Up & Down out of chair or steps ) may be difficult. This is normal. B. Numbness in front of the thigh is also normal for a few weeks. C. Use hand rails when walking on stairs. D. Wear low heeled shoes with non-slip soles. E. Be sure that your floors are free of things that could trip you - throw rugs, electrical cords, small objects. Avoid wet and waxed floors, especially with crutches and canes. F. Try to walk several times a day with rest periods between. G. Continue with all the exercises taught to you in the hospital. Again, make walking a part of your daily routine. SPECIAL CARE INSTRUCTIONS: VERY IMPORTANT TO READ AND REVIEW A. You may still be at risk for phlebitis and blood clots. 1. Wear surgical stockings (MELANY hose) for 2 weeks after surgery to improve circulation and reduce swelling. 2. Take Lovenox 40mg daily for four weeks or as directed by your doctor. This is your blood thinner. 3. High risk patients may be prescribed a stronger blood thinner if necessary. 4. If you are on Coumadin normally, your family doctor/animal bounty hunter should monitor your blood work. Expect a phone call the day of or the day after bloodwork is drawn to adjust your dosage. B. You must take antibiotics before having dental work, bladder, bowel and other surgery. Your doctor will provide you with a permanent card to carry describing precautions. C. Call [facility] if you have a fever, redness or swelling around the incision, cloudy drainage from incision, or sudden increase in pain in your hip, not relieved by your regular pain medication. D. Please call the office at if you have any concerns or questions about your operation or recovery. * YOU MAY SHOWER, NO TUB BATHS UNTIL CLEARED BY YOUR DOCTOR. - Keep an extra close eye on the top portion of your incision. Be sure to keep clean & dry. * WEAR MELANY HOSE 20 HOURS PER DAY FOR 2 WEEKS. * YOU MAY PROGRESS FROM A WALKER, TO A CANE, TO INDEPENDENT AT YOUR OWN PACE. * MOST PATIENTS WILL HAVE HOME NURSING FOR THERAPY. IF YOU DECIDE TO DO OUTPATIENT PHYSICAL THERAPY, PLEASE SCHEDULE THIS 3 TIMES PER WEEK. *JUD incisional vac is a special dressing covering your incision. This dressing provides a sterile dry environment while you are healing. The dressing is to be left in place for 7 days post-operatively. Your home nurse or surgeon will remove. If you develop any redness or blisters or have any questions notify your surgeon immediately. FOLLOW UP VISIT: If appointment is not already scheduled: Please call [facility] to make a follow-up appointment for 2 weeks after your surgery at . Please schedule appointment with Dr. Galvez, infectious disease at [facility] within 1 to 2 weeks post discharge. Pending Studies at Discharge: No Stand-Alone Forms: My [facility], Opioid Pain Management, Smoking Cessation Medications and DC Order Prescriptions: New acetaminophen 500 mg Tablet 1,000 mg PO Q8 PRN (Reason: pain/fevers) Qty: 90 RF: 0 oxycodone 5 mg Tablet 5 mg PO Q6H MDD 4 PRN (Reason: pain) Qty: 30 RF: 0 sennosides [Senokot] 8.6 mg Tablet 17.2 mg PO HS PRN (Reason: constipation) Qty: 28 RF: 0 enoxaparin 40 mg/0.4 mL Syringe 40 mg subcut QAM Qty: 28 RF: 0 daptomycin 500 mg recon soln 475 mg IV DAILY 42 Days Qty: 42 RF: 0 Continued atorvastatin 20 mg Tablet 10 mg PO QPM RF: 0 lisinopril 20 mg Tablet 20 mg PO BID RF: 0 glipizide 5 mg Tablet 5 mg PO UD RF: 0 multivitamin Tablet 1 tab PO BID RF: 0 ascorbic acid (vitamin C) [Vitamin C] 1,000 mg Tablet 1 g PO QAM RF: 0 cyanocobalamin (vitamin B-12) [Vitamin B-12] 1,000 mcg Tablet 1,000 mcg PO QAM RF: 0 garlic 1,000 mg Capsule 1,000 mg PO QAM RF: 0 coenzyme Q10 [CoQ-10] 100 mg Capsule 100 mg PO QPM RF: 0 calcium carbonate-vitamin D3 [Calcium 500 + D] 500 mg(1,250mg) -200 unit Tablet 2 tab PO BID RF: 0 potassium gluconate 595 mg (99 mg) Tablet 595 mg PO BID RF: 0 loperamide [Imodium A-D] 2 mg Tablet 2 mg PO QID PRN (Reason: Diarrhea) RF: 0 metformin 750 mg Tablet Extended Release 24 Hr 1,500 mg PO PM RF: 0 duloxetine 20 mg Capsule,Delayed Release(Dr/Ec) 20 mg PO QAM RF: 0 omeprazole 20 mg Tablet,Delayed Release (Dr/Ec) 20 mg PO BID RF: 0 Amador Tart 1 tab PO QAM RF: 0 Focus Factor 1 tab PO QAM RF: 0 Discontinued celecoxib [Celebrex] 200 mg Capsule 200 mg PO BID PRN (Reason: pain/inflammation) Qty: 28 RF: 0 acetaminophen 500 mg Tablet 1,000 mg PO Q8 PRN (Reason: pain/fevers) Qty: 90 RF: 0 oxycodone 5 mg Tablet 5 mg PO Q6H MDD 4 PRN (Reason: pain) Qty: 30 RF: 0 aspirin 81 mg tablet,delayed release (DR/EC) 81 mg PO QAM RF: 0 Discharge Orders: Discharge Order (Routine); Ordered 10/28/20 Ordered By: Brendan Schwartz Admission Data Admit Date/Time: 10/22/20 15:04 Attending Provider: Sadi Butler Admit Provider: Sadi Butler Primary Care Provider: Kathy Rios Other Providers: [facility] ; [facility] ; [place] ; Christiano Padgett ; Rex Machado I. ; José Miguel Hendrix II ; Flora Norton ; Abad Paz Other Interventions: Discharge Summary Assessment (RN) Last Done: 10/28/20 13:53
== END 2020-10-28 14:44 | disposition home health service (06) | DRG 482 ==
LOC: ASU 08:39 → 3N 08:39